=== PATIENT | female | born 1975 | race Caucasian/White ===

== ENCOUNTER 2016-06-21 19:11 | Emergency (ER) | payer OTHER ==
[~2016-06-21] VITALS: Ht 172.7 cm; Wt 93.0 kg
[~2016-06-21 19:11] MED LIST: ANTIVERT 25 MG25 MG PO; AUGMENTIN 875 M1 TAB PO; FENOFIBRIC ACI135 M1 PO; HYDROCODONE/ACE1 TA1 PO; LEVOTHYROXINE125 MCG PO; MULTIVITAMIN1 TAB PO; NORCO 325 MG-51 TAB PO; NORCO 5-325 TA1 EACH PO; PROMETHAZINE HC25 M3 PO; TORADOL10 MG PO; XANAX0.25 M1 PO; ZOFRAN ODT4 MG SL; ZOFRAN4 MG PO
[2016-06-21 19:26] VITALS: BP 135/90
--- NOTE | 2016-06-21 20:33 | ED GI/GU/ABDOMINAL COMPLAINT ---
History of Present Illness General Chief Complaint: Abdominal Pain/Flank Pain Stated Complaint: ABD PAIN Source: patient Exam Limitations: no limitations Vital Signs & Intake/Output Vital Signs & Intake/Output Vital Signs Date Time Temp Pulse Resp B/P Pulse O2 O2 Flow FiO2 Ox Delivery Rate 06/21 1925 98.4 79 18 135/90 97 Room Air ED Intake and Output 06/22 0000 06/21 1200 Intake Total Output Total Balance Patient 205 lb Weight Allergies Coded Allergies: Sulfa (Sulfonamide Antibiotics) (THROAT SWELLS/ITCHY 10/06/15) Reconcile Medications Alprazolam (Xanax) 0.25 MG TABLET 1 TAB PO TID PRN ANXIETY FENOFIBRIC ACID (CHOLINE) (Fenofibric Acid) 135 MG CAPSULE.DR 1 CAP PO DAILY CHOLESTEROL (Reported) Hydrocodone/Acetaminophen (Vicodin 5-300 MG Tablet) 5 MG-300 MG TABLET 1 TAB PO Q6 PRN pain may cause drowsiness Hydrocodone/Acetaminophen ([place] 5-325 Tablet) 1 EACH TABLET 1 TAB PO TIDPRN PRN HEADACHE Levothyroxine Sodium 0.125 MG TAB 1 TAB PO DAILY AC THYROID (Reported) Promethazine HCl 25 MG TABLET 1 TAB PO Q6P PRN NAUSEA Triage Note: PT TO ED C/O PRESSURE, BURNING PAIN "DOWN THERE" OFF AND ON FOR MONTHS, CONSTANT FOR THE LAST 3 DAYS "THERE'S AN ODOR" DENIES VAGINAL DISCHARGE. STEATES FEELS RELIEF WITH URINATION. +URINARY FREQUENCY Triage Nurses Notes Reviewed? yes ? N Is pt currently ? No HPI: Patient is a 40-year-old female presents complaining of urethral pain, dysuria, frequency. Patient reports that she has had symptoms for a couple of months, seen her urologist one month ago, had a bladder ultrasound and was told that her symptoms were not a urologic problem. Patient reports that she has had malodor vaginally, no discharge. Today patient felt weakness and diaphoresis and chills and fevers. Patient reports that her urethral pain improves with hot water and applying pressure to the area. Patient's last period was approximately 6 years ago. Patient denies vomiting, hematuria, vaginal discharge. (CONCHITA FORTUNE,MANAV) Past History Travel History Traveled to [place] past 21 day No Medical History Any Pertinent Medical History? 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 No (MANAV ORELLANA) Review of Systems Review of Systems Constitutional: Reports: chills, fever. EENTM: Reports: no symptoms. Respiratory: Denies: cough, short of breath. Cardiovascular: Denies: chest pain. GI: Reports: see HPI. Genitourinary: Reports: see HPI. Musculoskeletal: Reports: no symptoms. Skin: Reports: no symptoms. Neurological/Psychological: Reports: no symptoms. Hematologic/Endocrine: Reports: no symptoms. Immunologic/Allergic: Reports: no symptoms. (MANAV ORELLANA) Physical Exam Physical Exam General Appearance: alert, awake Head: atraumatic, normal appearance Eyes: Bilateral: normal appearance, PERRL, EOMI. Ears, Nose, Throat, Mouth: hearing grossly normal, moist mucous membrane Neck: normal inspection, supple, full range of motion Respiratory: normal breath sounds, no respiratory distress, lungs clear Cardiovascular: regular rate/rhythm Gastrointestinal: normal bowel sounds, soft, MILD BILATERAL PELVIC TENDERNESS Pelvic: with Sheila RN present throughout: no visible external lesions. Mild clitoral tenderness. Minimal white discharge from cervical os. No visible or palpable lesions. No cervical motion tenderness Back: normal inspection, normal range of motion, no cva tenderness Extremities: normal range of motion Neurologic/Psych: no motor/sensory deficits, awake, alert, oriented x 3, normal gait, normal mood/affect Skin: intact, normal color, warm/dry Core Measures ACS in differential dx? No Severe Sepsis Present: No Septic Shock Present: No (MANAV ORELLANA) Progress Differential Diagnosis: kidney stone, ovarian cyst, ovarian torsion, PID/ cervicitis, UTI/pyelo, INTERSTITIAL CYSTITIS Plan of Care: Orders Procedure Date/time Status TRICHOMONAS 06/22 2047 Complete POTASSIUM HYDROXIDE (MADIE) 06/22 2047 Complete GENITAL CULTURE 06/22 2047 Active CHLAMYDIA-GC DNA PROBE 06/22 2047 Active URINE 06/22 1931 Complete URINALYSIS 06/22 1931 Complete Laboratory Tests 06/21/161938: Urine Color YEL, Urine Clarity CLEAR, Urine pH 6.0, Ur Specific [place] 1.010, Urine Protein NEG, Urine Ketones NEG, Urine Nitrite NEG, Urine Bilirubin NEG, Urine Urobilinogen 0.2, Ur Leukocyte Esterase NEG, Ur Microscopic SEDIMENT EXAMINED, Urine RBC RARE, Urine WBC RARE, Ur Epithelial Cells FEW, Urine Bacteria RARE H, Urine Hemoglobin TRACE-INTACT, Urine Glucose NEG, Urine Test NEGATIVE Microbiology 06/21 2114 GENITAL: GC DNA Probe - RECD 06/21 2114 GENITAL: Chlamydia DNA Probe (NORBERTO) - RECD 06/21 2114 GENITAL: MADIE Preparation - COMP 06/21 2114 GENITAL: Trichomonas Preparation - COMP 06/21 2114 GENITAL: Genital Culture - RES Results of urinalysis, Trichomonas, fungal culture discussed with patient. No signs of PID on exam. Patient instructed to follow up with her ux ui designer for further evaluation. (MANAV ORELLANA) Initial ED EKG: none (MANAV ORELLANA) Departure Departure Time of Disposition: 2147 Disposition: HOME OR SELF CARE Condition: Stable Clinical Impression Primary Impression: Pelvic pain Referrals: KENNY SAL,DAPHNE (PCP/Family) UBALDO SAL,DAISY Gutiérrez Additional Instructions: Follow-up with your ux ui designer within one week for further evaluation. Call tomorrow for appointment. Return to the emergency department if fevers or worsening of symptoms. Departure Forms: Customer Survey General Discharge Information Prescriptions: Current Visit Scripts Hydrocodone/Acetaminophen (Vicodin 5-300 MG Tablet) 1 TAB PO Q6 PRN pain #10 TAB may cause drowsiness (MANAV ORELLANA) PA/CATHODE RAY TUBE ASSEMBLER Co-Sign Statement Statement: ED Attending supervision documentation- [] I saw and evaluated the patient. I have also reviewed all the pertinent lab results and diagnostic results. I agree with the findings and the plan of care as documented in the PA's/CATHODE RAY TUBE ASSEMBLER's documentation. [X] I have reviewed the ED Record and agree with the PA's/CATHODE RAY TUBE ASSEMBLER's documentation. [] Additions or exceptions (if any) to the PAs/CATHODE RAY TUBE ASSEMBLER's note and plan are summarized below: [] (JARRELL SAL,CESAR)
[2016-06-21] MEDS ORDERED: VICODIN 5-3001 EACH PO (21:49)
[2016-09-05] MEDS ORDERED: IBUPROFEN800 M1 PO (05:17)
[2016-09-05] MEDS ORDERED: NORCO 5-325 TA1 EACH PO (05:17)
[2016-09-05] MEDS ORDERED: ZOFRAN ODT4 M1 SL (05:17)
== END 2016-06-21 21:54 ==
LOC: ERH 19:11
DX: R10.2 Pelvic and perineal pain (principal)
CPT/HCPCS: 87070; 81001; 81025; 87147; 87491; 87591

== ENCOUNTER 2016-09-06 11:04 | Inpatient (IN) | payer OTHER ==
[~2016-09-06] VITALS: Ht 170.2 cm; Wt 93.9 kg
[~2016-09-06 11:04] MED LIST changes: +IBUPROFEN800 M1 PO; +VICODIN 5-3001 EACH PO; +ZOFRAN ODT4 M1 SL
--- NOTE | 2016-09-06 11:14 | NUR ---
PT SIB DR FOUNTAIN FOR FEVER AND KNOWN L SIDED KIDNEY STONE.
--- NOTE | 2016-09-06 11:17 | NUR ---
APPRECIATE TRIAGE NOTE. PT TO ROOM 18 VIA WHEELCHAIR. ASSISTED TO STRETCHER, AWAITING PROVIDER EVAL.
--- NOTE | 2016-09-06 11:23 | ED GENERAL ADULT ---
History of Present Illness General Chief Complaint: Abdominal Pain/Flank Pain Stated Complaint: ABD PAIN, VOMITTING, DX W/KIDNEY STONE YES Source: patient Exam Limitations: no limitations Vital Signs & Intake/Output Vital Signs & Intake/Output Vital Signs Date Time Temp Pulse Resp B/P B/P Pulse O2 O2 Flow FiO2 Mean Ox Delivery Rate 09/06 1815 99.0 86 18 120/78 95 Room Air Room Air 09/06 1229 101.2 101 18 119/61 98 Room Air Room Air 09/06 1114 101.9 104 20 121/74 100 Room Air Allergies Coded Allergies: Sulfa (Sulfonamide Antibiotics) (THROAT SWELLS/ITCHY 09/05/16) Reconcile Medications Hydrocodone/Acetaminophen ([place] 5-325 Tablet) 5 MG-325 MG TABLET 1-2 TAB PO Q4-6 PRN PRN pain six...[id number] Ibuprofen 800 MG TABLET 1 TAB PO TID PRN pain Ondansetron (Zofran Odt) 4 MG TAB.RAPDIS 1 TAB SL TID PRN nausea Triage Note: PT SIB DR ALVAREZ FOR FEVER AND KNOWN L SIDED KIDNEY STONE. Triage Nurses Notes Reviewed? yes : No Patient currently breastfeeds: No HPI: 41-year-old female with a history of hypertension, renal stones, hypothyroid presenting with subjective fevers 2 days. Patient was seen in the ED yesterday morning and diagnosed with a left-sided ureteral stone. Patient was sent back in by Dr. Alvarez for continued fevers. Patient endorses nausea, vomiting, intermittent left flank pain, dysuria, but denies hematuria. (THALIA PHILIPPE,DEBBI) Past History Travel History Traveled to [place] past 21 day No Medical History Any Pertinent Medical History? 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 No (DEBBI VÁSQUEZ PA-C) Review of Systems Review of Systems Constitutional: Reports: chills, fever. Denies: malaise, weakness. Respiratory: Reports: no symptoms. Cardiovascular: Reports: no symptoms. GI: Reports: nausea, vomiting. Denies: abdominal pain, constipation, diarrhea. Genitourinary: Reports: dysuria. Denies: frequency, hematuria, urgency. Musculoskeletal: Reports: no symptoms. Skin: Reports: no symptoms. Neurological/Psychological: Reports: no symptoms. (DEBBI VÁSQUEZ PA-C) Physical Exam Physical Exam General Appearance: well developed/nourished, no apparent distress, alert, awake , comfortable Head: atraumatic Respiratory: normal breath sounds, lungs clear Cardiovascular: regular rate/rhythm, normal peripheral pulses Gastrointestinal: normal bowel sounds, soft, non-tender Back: +Left CVAT Neurologic/Psych: awake, alert, oriented x 3, normal mood/affect Skin: intact, normal color, warm/dry Core Measures ACS in differential dx? No CVA/TIA Diagnosis: No Severe Sepsis Present: No Septic Shock Present: No (THALIA PHILIPPE,DEBBI) Progress Differential Diagnoses I considered the following diagnoses in my evaluation of the patient: [ Urolithiasis versus nephrolithiasis versus cystitis versus pyelonephritis versus hydronephrosis] Plan of Care: Orders Procedure Date/time Status Regular Diet 09/07 B Active CBC WITHOUT DIFFERENTIAL 09/07 0600 Active BASIC ELECTROLYTES PLUS BUN&CR 09/07 0600 Active Regular Diet 09/06 D Complete CULTURE,URINE 09/06 2053 Active LACTIC ACID 09/06 1928 Active Pathway - chart 09/06 1919 Active Pathway - chart 09/06 1918 Active House Staff 09/06 1918 Active Code Status 09/06 1918 Active CBC WITHOUT DIFFERENTIAL 09/06 1856 Complete Teach/Educate 09/06 1815 Active Pain Treatment and Response 09/06 1815 Active Nutritional Intake, Monitor 09/06 1815 Active Isolation 09/06 1815 Active Patient Care Conference 09/06 1815 Active Activity/Ambulation 09/06 1815 Active LACTIC ACID 09/06 1628 Complete Pathway - chart 09/06 1627 Active House Staff 09/06 1627 Active Patient Data 09/06 1627 Active BASIC ELECTROLYTES PLUS BUN&CR 09/06 1627 Complete Code Status 09/06 1627 Complete PATHOLOGY SPECIMEN 09/06 1426 Complete Intake & Output 09/06 1205 Active FingerStick- Glucose 09/06 1158 Complete BASIC METABOLIC PANEL 09/06 1129 Complete BLOOD CULTURE 09/06 1110 Active URINALYSIS 09/06 111 Complete CBC WITHOUT DIFFERENTIAL 09/06 1110 Complete VTE Mechanical Prophylaxis 09/06 UNK Active Vital Signs 09/06 UNK Active Intake & Output 09/06 UNK Complete Current Medications Sig/Lex Start time Last Medication Dose Stop Time Status Admin Ceftriaxone Sodium 1,000 MG DAILY 09/07 1000 AC (Rocephin) Acetaminophen 650 MG Q6P PRN 09/06 1929 AC 09/06 (Tylenol) 2005 Acetaminophen/ 1 TAB Q6P PRN 09/06 1929 AC 09/06 Hydrocodone Bitart 2206 (Vicodin) Morphine Sulfate 2 MG Q4P PRN 09/06 1929 AC (Morphine) Enoxaparin Sodium 40 MG DAILY 09/06 1917 AC 09/06 (Lovenox) 2058 Sodium Chloride 1,000 ML .Q6H40M 09/06 163 AC 09/06 (Normal Saline 0.9%) 190 Acetaminophen 650 MG ONCE ONE 09/06 113 CAN (Tylenol) 09/06 113 Laboratory Tests 09/06/162207: Lactic Acid Pending 09/06/16 190: CBC w Diff NO MAN DIFF REQ, RBC 4.27, MCV 93.5, MCH 31.2 H, RDW 12.3, MPV 8.6, Gran % 87.5 H, Lymphocytes % 7.2 L, Monocytes % 5.2, Eosinophils % 0, Basophils % 0.1, Absolute Granulocytes 5.9, Absolute Lymphocytes 0.5 L, Absolute Monocytes 0.4, Absolute Eosinophils 0, Absolute Basophils 0, PUBS MCHC 33.3 09/06/16 1832: Lactic Acid 1.2 09/06/16 1832: Anion Gap 9, Estimated GFR > 60, BUN/Creatinine Ratio 20.0 09/06/16 1135: CBC w Diff NO MAN DIFF REQ, RBC 4.42, MCV 93.0, MCH 31.1 H, RDW 12.2, MPV 8.4, Gran % 80.9 H, Lymphocytes % 8.2 L, Monocytes % 10.5 H, Eosinophils % 0.2, Basophils % 0.2, Absolute Granulocytes 5.9, Absolute Lymphocytes 0.6 L, Absolute Monocytes 0.8 H, Absolute Eosinophils 0, Absolute Basophils 0, PUBS MCHC 33.4, Urinalysis LIGHT H, Urine Color YEL, Urine Clarity HAZY H, Urine pH 6.5, Ur Specific [place] 1.025, Urine Protein 100 H, Urine Ketones TRACE H, Urine Nitrite NEG, Urine Bilirubin NEG@ICTO, Urine Urobilinogen 1.0, Ur Leukocyte Esterase SMALL H, Ur Microscopic SEDIMENT EXAMINED, Urine RBC 15-25 H, Urine WBC 15-25 H, Ur Epithelial Cells MOD H, Urine Bacteria MOD H, Urine Mucus FEW, Urine Hemoglobin LARGE H, Urine Glucose NEG 09/06/16 1133: Anion Gap 7, Estimated GFR > 60, BUN/Creatinine Ratio 24.3, Glucose 109 H, Calcium 8.9 09/06/16 1110: Sodium Cancelled, Potassium Cancelled, Chloride Cancelled, Carbon Dioxide Cancelled, Anion Gap Cancelled, BUN Cancelled, Creatinine Cancelled, BUN/ Creatinine Ratio Cancelled, Glucose Cancelled, Calcium Cancelled Microbiology 09/06 2052 URINE ROUT: Urine Culture - ORD 09/06 1136 BLOOD: Blood Culture - RECD 09/06 113 BLOOD: Blood Culture - RECD White cell count and kidney function within normal limits and labs. Patient taken to OR for stenting of known ureteral stone. (DEBBI VÁSQUEZ PA-C) Initial ED EKG: none (DEBBI VÁSQUEZ PA-C) Departure Departure Disposition: STILL A PATIENT Condition: Stable Clinical Impression Primary Impression: Ureteral stone Secondary Impressions: Fever Referrals: DAPHNE COX MD (PCP/Family) Departure Forms: Customer Survey General Discharge Information (DEBBI VÁSQUEZ PA-C) PA/CRIMINAL JUSTICE LAWYER Co-Sign Statement Statement: ED Attending supervision documentation- [] I saw and evaluated the patient. I have also reviewed all the pertinent lab results and diagnostic results. I agree with the findings and the plan of care as documented in the PA's/CRIMINAL JUSTICE LAWYER's documentation. [X] I have reviewed the ED Record and agree with the PA's/CRIMINAL JUSTICE LAWYER's documentation. [] Additions or exceptions (if any) to the PAs/CRIMINAL JUSTICE LAWYER's note and plan are summarized below: [] (JARRELL SAL,CESAR) Critical Care Note Critical Care Note Critical Care Time: non-applicable (DEBBI VÁSQUEZ PA-C) ED Attending Observation Initial Observation Note: I have seen and personally examined ALIYAH BERUMEN on 09/06/16 at 2216. I agree with the current emergency department documentation. The disposition (admission or discharge) is uncertain at this time, she needs a period of observation for the following reason(s): [surgical stenting of left ureter, post op monitoring, possible IV abx pending U/A results] The ED Nurse caring for this patient has been personally informed as to what the patient is being observed for. Observation Re-Evaluation: I have reevaluated ALIYAH BERUMEN on 09/06/16 at 2216. The physical findings that support the continued need to observe this patient include [fever, flank pain, dysuria]. Observation Discharge: I have reevaluated ALIYAH BERUMEN on 09/06/16 at 2216. The patient is: (): Stable for discharge (): To be admitted to Nursing Floor (): To be placed in Observation on Nursing Floor (): For transfer to other facility The patient was being observed for As a result of that observation, I have determined . (THALIA PHILIPPE,DEBBI)
--- NOTE | 2016-09-06 11:23 | NUR ---
DR. FOUNTAIN TO BEDSIDE FOR EVALUATION.
--- NOTE | 2016-09-06 12:08 | NUR ---
LINE EST #20 TO RIGHT FOREARM. MEDICATED WITH NS BOLUS, ZOFRAN 4MG IV AND TYLENOL IV PER EMAR. PT PROVIDED PRE-OP SCRUB, OR SHEET COMPPLETED.
[2016-09-06 12:13] LABS: ABSOLUTE BASOPHIL COUNT 0 /CUMM (0.0-0.2); ABSOLUTE EOSINOPHIL COUNT 0 /CUMM (0.0-0.7); ABSOLUTE GRANULOCYTE CT 5.9 /CUMM (1.4-6.5); ABSOLUTE LYMPH COUNT 0.6 /CUMM (1.2-3.4); ABSOLUTE MONOCYTE COUNT 0.8 /CUMM (0.10-0.60); BASOPHIL % 0.2 % (0.0-2.0); EOSINOPHIL % 0.2 % (0-5); GRANULOCYTE % 80.9 % (42.2-75.2); HEMATOCRIT 41.1 % (37-47); MEAN CORPUSCULAR HGB 31.1 PG (27.0-31.0); MEAN CORPUSCULAR HGB CONC 33.4 G/DL (33.0-37.0); MEAN PLATELET VOLUME 8.4 FL (7.4-10.4); PLATELET COUNT 125 /CUMM (130-400); RBC DISTRIBUTION WIDTH 12.2 % (11.5-14.5); RED BLOOD CELL CT 4.42 /CUMM (4.20-5.40); WHITE BLOOD CELL COUNT 7.3 /CUMM (4.8-10.8)
--- NOTE | 2016-09-06 12:45 | NUR ---
PT TRANSPORTED TO OR AT THIS TIME. PT FAMILY TAKING PT 1 BELONGING BAG WITH CLOTHES AND JEWELRY.
--- NOTE | 2016-09-06 14:34 | Cons- Urology ---
General Information and HPI Consulting Request Date of Consult: 09/06/16 Requested By: MD JARRELL, [facility]- Reason for Consult: left obstructed kidney with sepsis Source of Information: patient, old records Exam Limitations: no limitations History of Present Illness: 41 yr old with known hx stones. seen in ER several days ago with CT done revealing stone. Now returns with rigors, fever, severe N/V. Allergies/Medications Allergies: Coded Allergies: Sulfa (Sulfonamide Antibiotics) (THROAT SWELLS/ITCHY 09/05/16) Home Med List: Fenofibric Acid (Choline) (Fenofibric Acid) 135 MG CAPSULE.DR 1 CAP PO DAILY CHOLESTEROL (Reported) Hydrocodone/Acetaminophen ([place] 5-325 Tablet) 5 MG-325 MG TABLET 1-2 TAB PO Q4-6 PRN PRN pain six...[id number] Ibuprofen 800 MG TABLET 1 TAB PO TID PRN pain Levothyroxine Sodium 125 MCG TABLET 1 TAB PO DAILY AC THYROID (Reported) Ondansetron (Zofran Odt) 4 MG TAB.RAPDIS 1 TAB SL TID PRN nausea Current Medications: Current Medications Sig/Lex Start time Last Medication Dose Route Stop Time Status Admin Acetaminophen 1,000 MG ONCE ONE 09/06 1215 DC 09/06 N/A 1 UNIT IV 09/06 1229 1205 Acetaminophen 0 .STK-MED ONE 09/06 1148 DC IV Acetaminophen 650 MG ONCE ONE 09/06 1130 CAN PO 09/06 1131 Ondansetron HCl 0 .STK-MED ONE 09/06 1148 DC .ROUTE Ondansetron HCl 4 MG ONCE ONE 09/06 1145 DC 09/06 IV 09/06 1146 1203 Sodium Chloride 1,000 ML BOLUS ONE 09/06 1130 DC 09/06 IV 09/06 1229 1203 Past History Medical History Blood Transfusion Hx: No Neurological: NONE EENT: NONE Cardiovascular: hypertension Respiratory: asthma Gastrointestinal: NONE Hepatic: NONE Renal: nephrolithiasis Musculoskeletal: NONE Psychiatric: NONE Endocrine: hypothyroidism Blood Disorders: NONE Cancer(s): NONE 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 Ambulation: independent IADLs Independent: shopping, housework, finances, food prep, telephone, transportation , medication admin. Employment History Retired? no Review of Systems Review of Systems Constitutional: Reports: chills, diaphoresis, fever, malaise, weakness. EENTM: Denies: no symptoms. Cardiovascular: Denies: no symptoms. Respiratory: Denies: no symptoms. GI: Reports: bloating. Genitourinary: Reports: dysuria, frequency. Musculoskeletal: Reports: no symptoms. Skin: Reports: see HPI. Exam & Diagnostic Data Vital Signs and I&O Vital Signs Date Time Temp Pulse Resp B/P B/P Pulse O2 O2 Flow FiO2 Mean Ox Delivery Rate 09/06 1229 101.2 101 18 119/61 98 Room Air Room Air 09/06 1114 101.9 104 20 121/74 100 Room Air Intake & Output 09/06 1600 09/06 0800 09/06 0000 09/05 1600 09/05 0800 09/05 0000 Intake Total 1000 Output Total Balance 1000 Intake, IV 1000 Patient 207 lb Weight Weight Reported by Patient Measurement Method Physical Exam General Appearance: well developed/nourished, mild distress Head: atraumatic Eyes: Bilateral: normal appearance. Neck: normal inspection Respiratory: normal breath sounds Cardiovascular: regular rate/rhythm Gastrointestinal: normal bowel sounds Back: CVA tenderness (L) Extremities: normal inspection Reproductive: Normal female genitalia Pelvic: Appearance Normal Last 24 Hours of Labs: Laboratory Tests 09/06 09/06 09/06 1135 1133 1110 Chemistry Sodium (137 - 145 mmol/L) 137 Cancelled Potassium (3.5 - 5.1 mmol/L) 3.7 Cancelled Chloride (98 - 107 mmol/L) 102 Cancelled Carbon Dioxide (22 - 30 mmol/L) 27 Cancelled Anion Gap (5 - 16) 7 Cancelled BUN (7 - 17 mg/dL) 17 Cancelled Creatinine (0.5 - 1.0 mg/dL) 0.7 Cancelled Estimated GFR (>60 ml/min) > 60 BUN/Creatinine Ratio (7 - 25 %) 24.3 Cancelled Glucose (65 - 99 mg/dL) 109 H Cancelled Calcium (8.4 - 10.2 mg/dL) 8.9 Cancelled Hematology CBC w Diff NO MAN DIFF REQ WBC (4.8 - 10.8 /CUMM) 7.3 RBC (4.20 - 5.40 /CUMM) 4.42 Hgb (12.0 - 16.0 G/DL) 13.7 Hct (37 - 47 %) 41.1 MCV (81.0 - 99.0 FL) 93.0 MCH (27.0 - 31.0 PG) 31.1 H RDW (11.5 - 14.5 %) 12.2 Plt Count (130 - 400 /CUMM) 125 L MPV (7.4 - 10.4 FL) 8.4 Gran % (42.2 - 75.2 %) 80.9 H Lymphocytes % (20.5 - 51.1 %) 8.2 L Monocytes % (1.7 - 9.3 %) 10.5 H Eosinophils % (0 - 5 %) 0.2 Basophils % (0.0 - 2.0 %) 0.2 Absolute Granulocytes (1.4 - 6.5 /CUMM) 5.9 Absolute Lymphocytes (1.2 - 3.4 /CUMM) 0.6 L Absolute Monocytes (0.10 - 0.60 /CUMM) 0.8 H Absolute Eosinophils (0.0 - 0.7 /CUMM) 0 Absolute Basophils (0.0 - 0.2 /CUMM) 0 PUBS MCHC (33.0 - 37.0 G/DL) 33.4 Urines Urinalysis LIGHT H Urine Color (YEL,AMB,STR) YEL Urine Clarity (CLEAR) HAZY H Urine pH (5.0 - 8.0) 6.5 Ur Specific [place] (1.001 - 1.035) 1.025 Urine Protein (NEG,<30 MG/DL) 100 H Urine Ketones (NEG) TRACE H Urine Nitrite (NEG) NEG Urine Bilirubin (NEG) NEG@ICTO Urine Urobilinogen (0.1 - 1.0 EU/dl) 1.0 Ur Leukocyte Esterase (NEG) SMALL H Ur Microscopic SEDIMENT EXAMINED Urine RBC (0 - 5 /HPF) 15-25 H Urine WBC (0 - 2 /HPF) 15-25 H Ur Epithelial Cells (NONE,FEW) MOD H Urine Bacteria (NEG/NONE) MOD H Urine Mucus (FEW,NONE) FEW Urine Hemoglobin (NEG) LARGE H Urine Glucose (N MG/DL) NEG Imaging Results: PATIENT: ALIYAH BERUMEN PRESENT AGE: 40 PATIENT ACCOUNT NO: [id number] : 74 LOCATION: [facility] ORDERING PHYSICIAN: MIROSLAVA MEJIA MD SERVICE DATE: 09/05/16 EXAM TYPE: CAT - CT ABD & PELVIS W/O IV CONTRAS EXAMINATION: CT ABDOMEN AND PELVIS WITHOUT CONTRAST CLINICAL INFORMATION: Left flank pain COMPARISON: 09/25/2014 TECHNIQUE: Multidetector volumetric imaging was performed from the superior aspect of the liver through the pubic symphysis. Sagittal and coronal reformatted images were obtained on the technologist's workstation. DLP: 1020.37 mGy-cm FINDINGS: LUNG BASES: The visualized lung bases are unremarkable. LIVER, GALLBLADDER, AND BILIARY TREE: The liver is normal in size, shape, and attenuation. No focal hepatic lesion or biliary ductal dilatation is present. The gallbladder is unremarkable with no evidence of radiopaque gallstones, gallbladder wall thickening, or obvious pericholecystic inflammatory changes. PANCREAS: Unremarkable. SPLEEN: Unremarkable. ADRENAL GLANDS: Unremarkable. KIDNEYS AND URETERS: There is a distal left ureteral calculus measuring 4 mm with moderate to severe hydroureteronephrosis. There is an additional calculus in the lower pole of the left kidney measuring 3 mm. The right kidney is normal in appearance, without hydronephrosis. BLADDER: Unremarkable. GASTROINTESTINAL TRACT: Colonic diverticulosis is noted. The small and large bowel are otherwise unremarkable without evidence of obstruction or pericolonic inflammatory change. The appendix is unremarkable. ABDOMINAL WALL: No significant hernia is appreciated. LYMPH NODES: Normal. VASCULAR: There is minimal scattered vascular calcification. PELVIC VISCERA: Unremarkable. OSSEOUS STRUCTURES: There is partial sacralization of L5. IMPRESSION: 1. Distal left ureteral calculus measuring 4 mm with moderate to severe hydroureteronephrosis. 2. Left lower pole renal calculus measuring 3 mm. Assessment/Plan Assessment/Plan left obstructed kidney due to stone with sepsis/requires emergent stent Copies To: NEERU FOUNTAIN MD Consult Acknowledgment - Thank you for your consult request. Attending MD Review Statement Attending Statement Attending MD Statement: examined this patient, discuss w/resident/PA/JAVASCRIPT WEB DEVELOPER Attending Assessment/Plan: left ureter stone with obstruction; and sepsis.
--- NOTE | 2016-09-06 15:09 | RADIOLOGY REPORT ---
EXAMINATION: Fluoroscopy in the cystoscopy suite CLINICAL INDICATION: Distal left ureteral calculus and severe hydroureteronephrosis. Patient for retrograde stent placement. COMPARISON: CT of the abdomen and pelvis on 09/06/2019 03/21/2016. TECHNIQUE: Fluoroscopy was provided to Dr. Everardo Alvarez during the performance of left ureteroscopy and left ureteral stent placement. 7 spot films are submitted for review. The total fluoroscopy was 27 seconds. FINDINGS/IMPRESSION: The spot films document the steps taken in placement of a left ureteral stent, the proximal end of which is in the distal portion of the left renal pelvis and the distal end in the bladder. Please refer to operative notes for further details.
--- NOTE | 2016-09-06 16:12 | Operative Report ---
Operative/Inv Procedure Report Surgery Date: 09/06/16 Name of Procedure: cystoscopy: left ureteroscopy with basket extraction of stone, laser standby, retrograde pyelogram. fluoroscopy Pre-Operative Diagnosis: left obstructing ureter stone with sepsis Post-Operative Diagnosis: same Estimated Blood Loss: roya Surgeon/Nurse Clinical: NEERU FOUNTAIN MD Anesthesia: laryngeal mask airway Specimens: left ureter stone. Complications: none Operative/Procedure Note Note: The patient was taken to the operating room, and placed on the OR table in supine position. Timeout was performed, with the patient awake, in order to confirm correct identity, procedure, laterality, anesthesia, and other pertinent perioperative information. After adequate anesthesia and antibiotics, the patient was then placed lithotomy stirrups, draped and prepped in the usual surgical fashion. A 22 Liberian cystoscope sheath with 30 angle lens was inserted into the bladder without difficulty. Upon entering the bladder, the bladder was noted to be free of tumor free of stone. Both orifices were in their orthotopic position. The left ureter orifice was intubated with an 8fr cone-tip catheter and a retrograde pyelogram with fluoroscopy was performed revealing the 4 mm mid-left ureter stone, mid-ureter stricture, and proximal mild hydronephrosis. The cone-tipped catheter was removed, followed by insertion of a 0.035 Glidewire. The gluidewire was advanced into the left renal pelvis without difficulty. Correct placement of the wire was confirmed with fluoroscopy. Leaving the Glidewire in place, a flexible ureteroscope was advanced/rail-roaded over the gluidewire (with fluoroscopic visualization) and advanced into the bladder, and then into the left ureter, without significant difficulty. The ureteroscope was ealily advanced/inserted under direct visualization. Pyeloscopy and calyxoscopy was performed revealing no visible stones, but with findings noted in this report of upper calyx stone-obstructed lumen. The ureteroscope was retracted to visualize the stone. A zero-tip basket was then used to extract the ureter stone easily, and was then sent to pathology. The entire length of the ureter was visualize carefully on the way out with the ureteroscope, and no further stones, tumor, or strictures were confirmed. At this point the stand by yag laser was powered down. The 22 Liberian cystoscope sheath with a 30 angle lens was inserted once again, into the bladder. The left orifice was visualized, and a 0.035 Glidewire was then advanced into the left ureter. The Glidewire was advanced into the left renal pelvis, with fluoroscopic visualization, without difficulty. Over this Glidewire, a 6 x 22 Bard onlay stent was railroaded, with direct cystoscopic visualization, and fluoroscopic visualization. When the stent was in proper place, the Glidewire was removed, and the stent remained in good position. The bladder was then drained after the cystoscope was removed. The patient tolerated the procedures well, and was then taken to the recovery room in satisfactory condition. After discharge with abx. and pain meds, the patient is insturcted to have follow renal US, and post-op visit in 2-4 weeks. Discharge Disposition: PACU Additional Comments: to be admitted to med. for IV hydration and IV abx pending culture results from sepsis workup CC: АЛЕКСАНДР SAL,NEERU
--- NOTE | 2016-09-06 16:51 | History & Physical ---
MARIA G GOYAL 09/06/16 8170: General Information and HPI MD Statement: I have seen and personally examined ALIYAH BERUMEN and documented this H& P. The patient is a 41 year old F who presented with a patient stated chief complaint of fever, nausea, vomiting, left flank pain. Source of Information: patient, old records Exam Limitations: no limitations History of Present Illness: This is a 41-year-old female with past medical history significant for multiple admissions for kidney stones and stent placements, hyperlipidemia, hypothyroidism, hypertension presented to [facility] emergency department this morning with chief complaint of fever, nausea, vomiting, left flank pain, dysuria for 1 day. Of note patient was seen at the emergency room on 09/05/[address] abdomen showed a left ureteral stone 4 mm and moderate to severe hydroureteronephrosis, left lower pole kidney stone 3 mm. She was discharged from the emergency room on pain medications, nausea medications and she was advised to follow-up with urologist. She went home and she felt worsening of symptoms-nausea, vomiting, left flank pain. she has No relief with the pain medications. She came to the emergency department again this morning 09/06/2016 and she was evaluated by Dr. lAvarez urologist in the emergency room. She was taken to the operating room this afternoon for cystoscopy and stone removal and left ureteral stent placement. However after the procedure she started spiking temperatures again associated with the nausea, vomiting. Also reported left flank pain radiating to groin. No blood in urine. Denies any smoking, alcohol abuse, illicit drug abuse. Past medical history significant for hypertension-discontinued medications because of normal blood pressures Past medical history significant for hypothyroidism-discontinued levothyroxine because of normal thyroid function tests Patient has past medical history significant for kidney stones for 5 years. She underwent 5 procedures-stone removal, stent placements. She was admitted at [facility] 3 years ago for right ureteral stent placement. Allergies/Medications Allergies: Coded Allergies: Sulfa (Sulfonamide Antibiotics) (THROAT SWELLS/ITCHY 09/05/16) Home Med list Hydrocodone/Acetaminophen ([place]ah 5-325 Tablet) 5 MG-325 MG TABLET 1-2 TAB PO Q4-6 PRN PRN pain six...[id number] Ibuprofen 800 MG TABLET 1 TAB PO TID PRN pain Ondansetron (Zofran Odt) 4 MG TAB.RAPDIS 1 TAB SL TID PRN nausea Compliance With Home Meds: GOOD Past History Travel History Traveled to [place] past 21 day No Medical History Blood Transfusion Hx: No Neurological: NONE EENT: NONE Cardiovascular: hypertension Respiratory: asthma Gastrointestinal: NONE Hepatic: NONE Renal: nephrolithiasis Musculoskeletal: NONE Psychiatric: NONE Endocrine: hypothyroidism Blood Disorders: NONE Cancer(s): NONE 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 Ambulation: independent IADLs Independent: shopping, housework, finances, food prep, telephone, transportation , medication admin. Review of Systems Review of Systems Constitutional: Reports: chills, diaphoresis, fever, weakness. EENTM: Reports: no symptoms. Cardiovascular: Denies: chest pain, edema, orthopena, palpitations, peripheral edema, syncope. Respiratory: Denies: cough, hemoptysis, orthopnea, short of breath, sputum production, stridor, wheezing. GI: Reports: abdominal pain, nausea, vomiting. Denies: bloating, constipation, diarrhea, distention, bowel incontinence, melena. Genitourinary: Reports: dysuria. Denies: discharge, frequency, hematuria, hesitation, pain, urgency. Musculoskeletal: Denies: joint pain, joint swelling, muscle pain. Neurological/Psychological: Denies: headache, numbness, paresthesia, pre-existing deficit, tingling, tremors. Exam & Diagnostic Data Last 24 Hrs of Vital Signs/I&O Vital Signs Date Time Temp Pulse Resp B/P B/P Pulse O2 O2 Flow FiO2 Mean Ox Delivery Rate 09/06 1815 99.0 86 18 120/78 95 Room Air Room Air 09/06 1229 101.2 101 18 119/61 98 Room Air Room Air 09/06 1114 101.9 104 20 121/74 100 Room Air Intake & Output 09/06 1600 09/06 0800 09/06 0000 Intake Total 1000 Output Total Balance 1000 Intake, IV 1000 Patient 93.894 kg Weight Weight Reported by Patient Measurement Method Physical Exam General Appearance Alert, Oriented X3, Cooperative, No Acute Distress Skin No Rashes, No Breakdown HEENT Atraumatic, PERRLA, EOMI, Mucous Membr. moist/pink Neck Supple, No JVD Lymphatic Cervical nl Cardiovascular Normal S1, Normal S2 Lungs Normal Air Movement Abdomen Normal Bowel Sounds, Soft, No Tenderness Neurological Strength at 5/5 X4 Ext, Sensation Intact, Cranial Nerves 3-12 NL Extremities No Clubbing, No Cyanosis, No Edema Vascular Normal Pulses Last 24 Hrs of Labs/Castillo: Laboratory Tests 09/06/16 1901: CBC w Diff NO MAN DIFF REQ, RBC 4.27, MCV 93.5, MCH 31.2 H, RDW 12.3, MPV 8.6, Gran % 87.5 H, Lymphocytes % 7.2 L, Monocytes % 5.2, Eosinophils % 0, Basophils % 0.1, Absolute Granulocytes 5.9, Absolute Lymphocytes 0.5 L, Absolute Monocytes 0.4, Absolute Eosinophils 0, Absolute Basophils 0, PUBS MCHC 33.3 09/06/16 183: Lactic Acid 1.2 09/06/16 183: Anion Gap 9, Estimated GFR > 60, BUN/Creatinine Ratio 20.0 09/06/16 1135: CBC w Diff NO MAN DIFF REQ, RBC 4.42, MCV 93.0, MCH 31.1 H, RDW 12.2, MPV 8.4, Gran % 80.9 H, Lymphocytes % 8.2 L, Monocytes % 10.5 H, Eosinophils % 0.2, Basophils % 0.2, Absolute Granulocytes 5.9, Absolute Lymphocytes 0.6 L, Absolute Monocytes 0.8 H, Absolute Eosinophils 0, Absolute Basophils 0, PUBS MCHC 33.4, Urinalysis LIGHT H, Urine Color YEL, Urine Clarity HAZY H, Urine pH 6.5, Ur Specific [place] 1.025, Urine Protein 100 H, Urine Ketones TRACE H, Urine Nitrite NEG, Urine Bilirubin NEG@ICTO, Urine Urobilinogen 1.0, Ur Leukocyte Esterase SMALL H, Ur Microscopic SEDIMENT EXAMINED, Urine RBC 15-25 H, Urine WBC 15-25 H, Ur Epithelial Cells MOD H, Urine Bacteria MOD H, Urine Mucus FEW, Urine Hemoglobin LARGE H, Urine Glucose NEG 09/06/16 1133: Anion Gap 7, Estimated GFR > 60, BUN/Creatinine Ratio 24.3, Glucose 109 H, Calcium 8.9 09/06/16 1110: Sodium Cancelled, Potassium Cancelled, Chloride Cancelled, Carbon Dioxide Cancelled, Anion Gap Cancelled, BUN Cancelled, Creatinine Cancelled, BUN/ Creatinine Ratio Cancelled, Glucose Cancelled, Calcium Cancelled Microbiology 09/06 1137 BLOOD: Blood Culture - RECD 09/06 1135 BLOOD: Blood Culture - RECD Assessment/Plan Assessment: This is a 41-year-old female with past medical history significant for multiple admissions for kidney stones and stent placements, hyperlipidemia, hypothyroidism, hypertension presented to [facility] emergency department this morning with chief complaint of fever, nausea, vomiting, left flank pain, dysuria for 1 day. Of note patient was seen at the emergency room on 09/05/[address] abdomen showed a left ureteral stone 4 mm and moderate to severe hydroureteronephrosis, left lower pole kidney stone 3 mm. She was discharged from the emergency room on pain medications, nausea medications and she was advised to follow-up with urologist. She came to the emergency department again this morning 09/06/2016 and she was evaluated by Dr. Alvarez urologist in the emergency room. She was taken to the operating room this afternoon for cystoscopy and stone removal and left ureteral stent placement. Admission vitals-febrile to 101.9, tachycardia 104, respiratory rate 20, blood pressure 121/74, saturating at 100% on room air. 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 Abdomen CT IMPRESSION: 1. Distal left ureteral calculus measuring 4 mm with moderate to severe hydroureteronephrosis. 2. Left lower pole renal calculus measuring 3 mm. Problem list 1. Sepsis from Acute pyelonephritis 2. Left ureteral stone status post stone removal and stent placement 3. Moderate to severe hydroureteronephrosis left kidney 4. Hypertension 5. hypothyroidism Sepsis from acute pyelonephritis Patient presented to the emergency department with fever, chills, nausea, vomiting, left flank pain, dysuria. Denies any hematuria. No relief with pain medication. She is febrile 101.9 with a tachycardia. Fulfilled SIRS criteria on admission and the source of sepsis is most possibly urine. CAT scan abdomen showed a left ureteral stone 4 mm. Moderate to severe hydroureteronephrosis. * cystoscopy: left ureteroscopy with basket extraction of stone, laser standby, retrograde pyelogram And left ureteral stent placement was done. * She was admitted to general medicine floor for further management of sepsis. * Monitor vitals closely every shift * Monitor closely for blood pressures, she had borderline blood pressures 104/ 70. * Monitor for fever, leukocytosis, worsening flank pain * Antinausea medications * IV ceftriaxone * IV fluids normal saline * We will follow-up blood cultures * Monitor CBCs * Will follow-up urine cultures Left ureteral stone/moderate to severe hydroureteronephrosis IMPRESSION: 1. Distal left ureteral calculus measuring 4 mm with moderate to severe hydroureteronephrosis. 2. Left lower pole renal calculus measuring 3 mm. * cystoscopy: left ureteroscopy with basket extraction of stone, laser standby, retrograde pyelogram * And left ureteral stent placement was done. * Abdominal x-ray confirmed the left ureteral stent placement * Will follow up Dr. Alvarez recommendations. History of kidney stones Patient has past medical history significant for kidney stones for 5 years. She underwent 5 procedures-stone removal, stent placements. She was admitted at [facility] 3 years ago for right ureteral stent placement. * We'll try to get records from [facility] * Will follow up Dr. Alvarez recommendation. History of hypertension * Not on any home medications History of hypothyroidism * Not on levothyroxine Pain pathway-Tylenol, Vicodin, morphine for mild/moderate and severe pain DVT prophylaxis subcutaneous Lovenox Regular diet Full code As Ranked By This Provider Problem List: 1. Abdominal pain 2. Vomiting 3. Renal colic on left side Core Measures/Miscellaneous Acute Coronary Syndrome ACS Diagnosis: No Cerebrovascular Accident CVA/TIA Diagnosis: No Congestive Heart Failure CHF Diagnosis: No VTE (View Protocol) VTE Risk Factors: Age > 40 [facility] prophylaxis d/t: No contraindications No VTE Pharm Prophylaxis d/t: No contraindications VTE Diagnosis: No VTE Type: NONE VTE Confirmed by (Test): NONE Sepsis (View Protocol) Severe Sepsis Present: No Septic Shock Septic Shock Present: No Miscellaneous Documentation Attending Case Discussed With: dr. sullivan Primary Care Physician: DAPHNE COX MD Patient sees these Specialists urology Level of Patient Care: General Medicine JENIFER MERRILL 06/20/17 1810: Resident Review Statement Resident Statement: examined this patient, discussed with bakery pastry internship, agreed with bakery pastry internship, discussed with family, reviewed EMR data (avail), discussed with nursing , discussed with case mgmt, reviewed images, amended to note Other Findings: 41-year-old woman was admitted for left obstructing ureteral stone status post ureteroscopy and basket extraction of the stone and retrograde stent placement.Patient has a past medical history significant for multiple kidney stones and prior episode of pyelonephritis about 3 years ago secondary to obstructing ureter stone which was treated in [facility] with IV antibiotics and stone removal procedure. She has been following up regularly with Dr. Alvarez. According to patient's her latest abdominal CT scan about a month ago was insignificant. On Monday nights patient initially felt a mild, sharp, left flank pain. She denies any rigors, fever, feeling nauseous and vomiting by that time. According to patient her left-sided flank pain progressively worsens over time, she also started developing rigors and spikes of fever. Yesterday at 2 AM patient presented at [facility] emergency room for left-sided flank pain (7 or 8 out of 10, intermittent, sharp, radiating towards the genital area, associated with feeling nausea, and one or 2 episodes of vomiting), associated with fever and rigors. CT scan of the abdomen and pelvis was obtained which showed the 4 mm non-obstructive ureter stone. Patient was discharged on analgesics and instructed to follow-up with Dr. Alvarez. Overnight patient conditions worsens, patient returned to emergency room with high-grade fever intermittent/colicky left-sided flank pain, N/V. She was seen by Dr. Alvarez and taken to operative room for urethroscopy and stone extraction. Post procedure patient was admitted to general medical floor for IV hydration and antibiotic therapy. of note, ruptured hemorrhagic cyst, laparoscopic tubal sterilization. Review of system: Complains of left flank pain, generalized soreness and fatigue. Physical exam: Alert and oriented 3, HEENT: Mucous membranes are dry, heart and lungs are normal S1-S2 normal air entry; abdomen: Soft, no guarding no rebound, left CVA tenderness; extremities: Warm, peripheral pulses 2+ symmetric, CTR less than 3, skin turgor normal. Past surgical history: Ruptured hemorrhagic cyst; and laparoscopic tubal sterilization. Vital signs: 101, 18, 119/61, 98% Pertinent data 7.380% no bandemia, H&H: 13.7/41.1, platelet 125 ( last platelet number was 139) . Assessment and plan 41-year-old woman was admitted for obstructing distal left ureteral stone with moderate to severe hydroureteronephrosis s/p stone extraction and then placement. List of problems #1 obstructing ureteral stone and severe hydro-ureteral nephrosis s/p stent placment * Admit to general medical floor * Check vital signs every 4; goal: MAP> 65mmhg otherwise vigorous IV hydration, and transferred to ICU for central line placement vasopressor. * Normal saline 1000 ML bolus * Normal saline 150 mL per hour * Strict ins and outs control; goal: 0.5 mL per KG per hour urine output * CBC, BEP, lactic acid is status, trend lactic acid every 3 hours * Repeat labs in the a.m. * Follow blood culture results * Ceftriaxone 1000 mg IV daily * Follow Dr. Alvarez's notes * Follow attendings note DVT prophylaxis-enoxaparin 40 units subcutaneous daily Pain management mild/moderate and severe pain pathway Full code SHIVANI SULLIVAN MD 09/06/16 2200: Attending MD Review Statement Attending Statement Attending MD Statement: examined this patient, discuss w/resident/PA/GAS WELL PUMPER, agreed w/resident/PA/GAS WELL PUMPER, reviewed EMR data (avail) Attending Assessment/Plan: 41F PMH recurrent nephrolithiasis underwent cystoscopy with stone retrieval and ureteral stent placement, with post-procedure fever, rigors, malaise, and generalized weakness. Febrile 101.9, tachycardic 110, WBC 6. Patient appears ill and fatigued. 1. Sepsis 2. Acute pyelonephritis 3. Nephrolithiasis s/p ureteral stent Plan - Admit to general medicine - Start Ceftriaxone - IV hydration - Blood and urine cultures - Follow urology recommendations - Continue home medications - DVT PPx
[2016-09-06 18:15] VITALS: BP 120/78
--- NOTE | 2016-09-06 19:45 | NUR ---
NURSING NOTE: PT ARRIVED TO FLOOR VIA STRETCHER. PT AMBULATED FROM STRETCHER TO BED. VSS CHARTED. C/O HEADACHE 05/27. IVF INFUSING.
[2016-09-06 19:53] LABS: ABSOLUTE BASOPHIL COUNT 0 /CUMM (0.0-0.2); ABSOLUTE EOSINOPHIL COUNT 0 /CUMM (0.0-0.7); ABSOLUTE GRANULOCYTE CT 5.9 /CUMM (1.4-6.5); ABSOLUTE LYMPH COUNT 0.5 /CUMM (1.2-3.4); ABSOLUTE MONOCYTE COUNT 0.4 /CUMM (0.10-0.60); HEMATOCRIT 39.9 % (37-47); MEAN CORPUSCULAR HGB 31.2 PG (27.0-31.0); MEAN CORPUSCULAR HGB CONC 33.3 G/DL (33.0-37.0); MEAN CORPUSCULAR VOLUME 93.5 FL (81.0-99.0); MEAN PLATELET VOLUME 8.6 FL (7.4-10.4); PLATELET COUNT 127 /CUMM (130-400); RBC DISTRIBUTION WIDTH 12.3 % (11.5-14.5); RED BLOOD CELL CT 4.27 /CUMM (4.20-5.40); WHITE BLOOD CELL COUNT 6.8 /CUMM (4.8-10.8)
[2016-09-06 19:55] LABS: BASOPHIL % 0.1 % (0.0-2.0); EOSINOPHIL % 0 % (0-5); GRANULOCYTE % 87.5 % (42.2-75.2)
--- NOTE | 2016-09-06 22:03 | Admission Certification ---
Admission Certification Certification Statement - As attending physician, I certify that at the time of - admission, based on clinical presentation, severity of - symptoms, need for further diagnostic testing and - therapeutic interventions, and risk of adverse outcomes - without in-hospital treatment, in my clinical assessment, - this patient requires an acute hospital stay for a minimum - of two nights or longer. I have also considered psychsocial - factors such as support system, advanced age, financial - issues, cognitive issues, and failed out-patient treatments, - past re-admission history, safety of patient, and lack of - compliance as applicable. Specific rationale supporting this admission is: Sepsis secondary to UTI following ureteral stone removal
[2016-09-06 22:32] VITALS: BP 118/72
[2016-09-07 06:00] VITALS: BP 118/72
[2016-09-07 08:14] LABS: ABSOLUTE BASOPHIL COUNT 0 /CUMM (0.0-0.2); ABSOLUTE EOSINOPHIL COUNT 0 /CUMM (0.0-0.7); ABSOLUTE GRANULOCYTE CT 4.1 /CUMM (1.4-6.5); ABSOLUTE LYMPH COUNT 0.8 /CUMM (1.2-3.4); ABSOLUTE MONOCYTE COUNT 0.7 /CUMM (0.10-0.60); BASOPHIL % 0.2 % (0.0-2.0); EOSINOPHIL % 0 % (0-5); GRANULOCYTE % 73.5 % (42.2-75.2); HEMATOCRIT 37.1 % (37-47); MEAN CORPUSCULAR HGB 31.5 PG (27.0-31.0); MEAN CORPUSCULAR HGB CONC 33.4 G/DL (33.0-37.0); MEAN PLATELET VOLUME 8.4 FL (7.4-10.4); PLATELET COUNT 122 /CUMM (130-400); RBC DISTRIBUTION WIDTH 12.3 % (11.5-14.5); RED BLOOD CELL CT 3.95 /CUMM (4.20-5.40); WHITE BLOOD CELL COUNT 5.6 /CUMM (4.8-10.8)
--- NOTE | 2016-09-07 08:19 | PN- Housestaff ---
See Addendum Subjective Follow-up For: 1. Sepsis from Acute pyelonephritis 2. Left ureteral stone status post stone removal and stent placement 3. Moderate to severe hydroureteronephrosis left kidney Complaints: pain scale (0-10) Subjective: Patient was seen and examined this morning. She is alert awake and oriented to time place and person. No acute events noticed overnight Patient reports mild headache and dizziness. She denies any pain in her flanks, frequency, urgency, dysuria No hematuria She feels some pressure at the site of stent placement Denied any fever, chills Offers no other complaints Vitals remained stable, afebrile, heart rate 76, respiratory rate 22, blood pressure 128/72, saturating at 94 on room air Review of Systems Constitutional: Reports: no symptoms. Objective Last 24 Hrs of Vital Signs/I&O Vital Signs Date Time Temp Pulse Resp B/P B/P Pulse O2 O2 Flow FiO2 Mean Ox Delivery Rate 09/07 0600 98.3 76 22 118/72 94 Room Air 09/06 2232 98.4 73 22 118/72 95 Room Air 09/06 1815 99.0 86 18 120/78 95 Room Air Room Air 09/06 1229 101.2 101 18 119/61 98 Room Air Room Air Intake & Output 09/07 1600 09/07 0800 09/07 0000 Intake Total 1200 1000 Output Total 350 400 Balance 850 600 Intake, IV 1200 1000 Output, Urine 350 400 Patient 93.894 kg Weight Physical Exam General Appearance: Alert, Oriented X3, Cooperative, No Acute Distress Skin: No Rashes, No Breakdown HEENT: Atraumatic, PERRLA, EOMI, Mucous Membr. moist/pink Neck: Supple, No JVD Lymphatic: Cervical nl Cardiovascular: Normal S1, Normal S2 Lungs: Normal Air Movement Abdomen: Normal Bowel Sounds, Soft, No Tenderness Neurological: Normal Speech, Strength at 5/5 X4 Ext, Normal Tone, Sensation Intact, Cranial Nerves 3-12 NL Extremities: No Clubbing, No Cyanosis, No Edema Vascular: Pulses Symmetrical Current Medications: Current Medications Sig/Lex Start time Last Medication Dose Route Stop Time Status Admin Acetaminophen 650 MG Q6P PRN 09/06 1930 AC 09/06 PO 2005 Acetaminophen 1,000 MG ONCE ONE 09/06 1215 DC 09/06 N/A 1 UNIT IV 09/06 1229 1205 Acetaminophen 0 .STK-MED ONE 09/06 1148 DC IV Acetaminophen 650 MG ONCE ONE 09/06 1130 CAN PO 09/06 1131 Acetaminophen/ 1 TAB Q6P PRN 09/06 1930 AC 09/07 Hydrocodone Bitart PO 1143 Ceftriaxone Sodium 1,000 MG DAILY 09/07 1000 AC 09/07 IV 0813 Ceftriaxone Sodium 2,000 MG Q24H 09/06 1800 DC IV Docusate Sodium 100 MG DAILY NEEDED PRN 09/07 1145 AC PO Enoxaparin Sodium 40 MG DAILY 09/07 1047 DC SC Enoxaparin Sodium 40 MG DAILY 09/06 1918 AC 09/07 SC 0813 Hydromorphone HCl 2 MG .STK-MED ONE 09/06 1642 DC IM 09/06 1643 Morphine Sulfate 2 MG Q4P PRN 09/06 1930 AC IV Ondansetron HCl 4 MG ONCE ONE 09/06 2230 DC 09/06 IV 09/06 223 2235 Ondansetron HCl 0 .STK-MED ONE 09/06 1148 DC .ROUTE Polyethylene Glycol 17 GM DAILY PRN 09/07 1145 UNVr PO Senna/Docusate Sodium 2 TAB DAILY PRN 09/07 1145 UNVr PO Sodium Chloride 1,000 ML BOLUS ONE 09/06 1700 DC 09/06 IV 09/06 1759 1814 Sodium Chloride 1,000 ML .Q6H40M 09/06 1630 DC 09/07 IV 0143 Sodium Chloride 1,000 ML BOLUS ONE 09/06 1130 DC 09/06 IV 09/06 1229 1203 Last 24 Hrs of Lab/Castillo Results Last 24 Hrs of Labs/Mics: Laboratory Tests 09/07/16 06: Anion Gap 8, Estimated GFR > 60, BUN/Creatinine Ratio 20.0, CBC w Diff NO MAN DIFF REQ, RBC 3.95 L, MCV 94.0, MCH 31.5 H, RDW 12.3, MPV 8.4, Gran % 73.5, Lymphocytes % 14.6 L, Monocytes % 11.7 H, Eosinophils % 0, Basophils % 0.2, Absolute Granulocytes 4.1, Absolute Lymphocytes 0.8 L, Absolute Monocytes 0.7 H, Absolute Eosinophils 0, Absolute Basophils 0, PUBS MCHC 33.4 09/06/162207: Lactic Acid 1.4 06/20/17 1901: CBC w Diff NO MAN DIFF REQ, RBC 4.27, MCV 93.5, MCH 31.2 H, RDW 12.3, MPV 8.6, Gran % 87.5 H, Lymphocytes % 7.2 L, Monocytes % 5.2, Eosinophils % 0, Basophils % 0.1, Absolute Granulocytes 5.9, Absolute Lymphocytes 0.5 L, Absolute Monocytes 0.4, Absolute Eosinophils 0, Absolute Basophils 0, PUBS MCHC 33.3 09/06/16 1832: Lactic Acid 1.2 09/06/16 183: Anion Gap 9, Estimated GFR > 60, BUN/Creatinine Ratio 20.0 09/06/16 1446: Stone Analysis Pending, Stone Source Pending, Stone Nidus Pending, Stone Comment Pending, Stone Comment Pending Microbiology 09/07 25 URINE ROUT: Urine Culture - RECD Assessment/Plan Assessment: This is a 41-year-old female with past medical history significant for multiple admissions for kidney stones and stent placements, hyperlipidemia, hypothyroidism, hypertension presented to [facility] emergency department on 09/06/2016 with chief complaint of fever, nausea, vomiting, left flank pain, dysuria for 1 day. Of note patient was seen at the emergency room on 09/05/[address] abdomen showed a left ureteral stone 4 mm and moderate to severe hydroureteronephrosis, left lower pole kidney stone 3 mm. She was discharged from the emergency room on pain medications, nausea medications and she was advised to follow-up with urologist. She came to the emergency department again this morning 09/06/2016 and she was evaluated by Dr. Alvarez urologist in the emergency room. She was taken to the operating room this afternoon for cystoscopy and stone removal and left ureteral stent placement. Admission vitals-febrile to 101.9, tachycardia 104, respiratory rate 20, blood pressure 121/74, saturating at 100% on room air. 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 Abdomen CT IMPRESSION: 1. Distal left ureteral calculus measuring 4 mm with moderate to severe hydroureteronephrosis. 2. Left lower pole renal calculus measuring 3 mm. Problem list 1. Sepsis from Acute pyelonephritis 2. Left ureteral stone status post stone removal and stent placement 3. Moderate to severe hydroureteronephrosis left kidney 4. Hypertension 5. hypothyroidism Sepsis from acute pyelonephritis Patient presented to the emergency department with fever, chills, nausea, vomiting, left flank pain, dysuria. Denies any hematuria. No relief with pain medication. She is febrile 101.9 with a tachycardia. Fulfilled SIRS criteria on admission and the source of sepsis is most possibly urine. CAT scan abdomen showed a left ureteral stone 4 mm. Moderate to severe hydroureteronephrosis. * cystoscopy: left ureteroscopy with basket extraction of stone, laser standby, retrograde pyelogram And left ureteral stent placement was done. * She was admitted to general medicine floor for further management of sepsis. * Monitor vitals closely every shift * Monitoring closely for blood pressures, she had borderline blood pressures 104 /70. * Monitoring for fever, leukocytosis, worsening flank pain * Antinausea medications prn * IV ceftriaxone- day2 * IV fluids normal saline- discontinued after 2 bags * We will follow-up blood cultures * Monitor CBCs-WBC count remained stable, no leukocytosis, remained afebrile * Will follow-up urine cultures Left ureteral stone/moderate to severe hydroureteronephrosis IMPRESSION: 1. Distal left ureteral calculus measuring 4 mm with moderate to severe hydroureteronephrosis. 2. Left lower pole renal calculus measuring 3 mm. * cystoscopy: left ureteroscopy with basket extraction of stone, laser standby, retrograde pyelogram * And left ureteral stent placement was done. * Abdominal x-ray confirmed the left ureteral stent placement * Will follow up Dr. Alvarez recommendations. History of kidney stones Patient has past medical history significant for kidney stones for 5 years. She underwent 5 procedures-stone removal, stent placements. She was admitted at [facility] 3 years ago for right ureteral stent placement. * We'll try to get records from [facility] * Will follow up Dr. Alvarez recommendation. History of hypertension * Not on any home medications * Blood pressure borderline. * Improved 118/72 after hydration History of hypothyroidism * Not on levothyroxine Constipation * Bowel regimen was added Pain pathway-Tylenol, Vicodin, morphine for mild/moderate and severe pain DVT prophylaxis subcutaneous Lovenox Regular diet Full code Problem List: 1. Renal colic on left side 2. Ureteral stone 3. Fever Pain Ratin Pain Location: left flank Pain Goal: Remain pain free Pain Plan: Tylenol Ibuprofen Morphine Tomorrow's Labs & Rationales: CBCs in the setting of infection and kidney stone
[2016-09-07 14:24] VITALS: BP 126/70
--- NOTE | 2016-09-07 16:04 | Patient Discharge Instructions ---
Discharge Instructions General Discharge Information You were seen/treated for: Left ureter stone moderate to severe hydroureteronephrosis Acute pyelonephritis You had these procedures: Left ureteric stone 4 mm status post cystoscopy, stone removal and left ureter stent placement Special Instructions: Please follow-up with your primary care physician in one week after discharge please follow-up with urologist Dr. Alvarez within 1-2 weeks after discharge Drink plenty of fluids and keep yourself hydrated Complete antibiotic course Diet Continue normal diet: Yes Activity Full Activity/No Limits: Yes Acute Coronary Syndrome Inclusion Criteria At DC or during hospital stay patient has or had the following: ACS DIAGNOSIS No Discharge Core Measures Meds if any: Prescribed or Continued at Discharge Meds if any: NOT Prescribed or Continued at Discharge Congestive Heart Failure Inclusion Criteria At DC or during hospital stay patient has or had the following: CHF DIAGNOSIS No Discharge Core Measures Meds if any: Prescribed or Continued at Discharge Meds if any: NOT Prescribed or Continued at Discharge Cerebrovascular accident Inclusion Criteria At DC or during hospital stay patient has or had the following: CVA/TIA Diagnosis No Discharge Core Measures Meds if any: Prescribed or Continued at Discharge Meds if any: NOT Prescribed or Continued at Discharge Venous thromboembolism Inclusion Criteria VTE Diagnosis No VTE Type NONE VTE Confirmed by (Test) NONE Discharge Core Measures - Per Current guidelines, there needs to be overlap - treatment for the first 5 days of Warfarin therapy. - If discharged on Warfarin prior to 5 days of - overlap therapy, the patient will need to be - assessed for post discharge needs including - *Post discharge parental anticoagulation - *Warfarin and/or parental anticoagulation education - *Follow up date to check INR post discharge At least 5 days overlap therapy as Inpatient No Meds if any: Prescribed or Continued at Discharge Note: Overlap Therapy is Warfarin and Anticoagulant Meds if any: NOT Prescribed or Continued at Discharge
[2016-09-07 22:48] VITALS: BP 118/72
[2016-09-08 00:15] VITALS: BP 124/72
[2016-09-08 03:59] VITALS: BP 120/62
[2016-09-08 06:22] VITALS: BP 124/72
--- NOTE | 2016-09-08 07:00 | NUR ---
LATE ENTRY NURSING NOTE: PATIENTS TEMP 101.4 AT THIS TIME PER MST. MD Buddy BOONE PAGED TO BE MADE AWARE. WHILE AWAITING REPLY, PATIENT C/O NUMBESS IN HER FACE AND REQUESTED FOR HER TEMP TO BE RECHECKED. AT 0730 PATIENTS TEMP 99.8 ALL OTHER VSS, IN NO ACUTE DISTRESS, CALM AND SITTING UP IN BED. MD Lissett CUMMINS NOTIFIED OF THE ABOVE. MD AT BEDSIDE TO EVALUATE. DAY RN DAVID AWARE OF ABOVE WELL. CONT TO MONITOR.
[2016-09-08 07:44] LABS: ABSOLUTE BASOPHIL COUNT 0 /CUMM (0.0-0.2); ABSOLUTE EOSINOPHIL COUNT 0.1 /CUMM (0.0-0.7); ABSOLUTE GRANULOCYTE CT 3.9 /CUMM (1.4-6.5); ABSOLUTE LYMPH COUNT 1.3 /CUMM (1.2-3.4); ABSOLUTE MONOCYTE COUNT 0.8 /CUMM (0.10-0.60); BASOPHIL % 0.7 % (0.0-2.0); EOSINOPHIL % 2.3 % (0-5); GRANULOCYTE % 63.6 % (42.2-75.2); MEAN CORPUSCULAR HGB 31.3 PG (27.0-31.0); MEAN CORPUSCULAR HGB CONC 33.7 G/DL (33.0-37.0); MEAN CORPUSCULAR VOLUME 92.8 FL (81.0-99.0); PLATELET COUNT 146 /CUMM (130-400); RBC DISTRIBUTION WIDTH 12.4 % (11.5-14.5); WHITE BLOOD CELL COUNT 6.2 /CUMM (4.8-10.8)
[2016-09-08 08:22] LABS: HEMATOCRIT 42.6 % (37-47)
--- NOTE | 2016-09-08 08:22 | PN- Housestaff ---
MARIA G GOYAL 09/08/16 0822: Subjective Follow-up For: 1. Sepsis from Acute pyelonephritis 2. Left ureteral stone status post stone removal and stent placement 3. Moderate to severe hydroureteronephrosis left kidney Complaints: pain scale (0-10) Subjective: Patient was seen and examined this morning. She is alert awake and oriented to time place and person. No acute events noticed overnight. Patient spiked a temperature 101 this morning. Patient reports mild headache and dizziness. She reports pain in her flanks, frequency, urgency, dysuria No hematuria She feels some pressure at the site of stent placement Offers no other complaints Vitals remained stable, afebrile, heart rate 76, respiratory rate 22, blood pressure 128/72, saturating at 94 on room air Review of Systems Constitutional: Reports: no symptoms. Objective Last 24 Hrs of Vital Signs/I&O Vital Signs Date Time Temp Pulse Resp B/P B/P Pulse O2 O2 Flow FiO2 Mean Ox Delivery Rate 09/08 1257 99.6 86 20 130/76 96 Room Air 09/08 0738 99.8 09/08 0730 99.8 09/08 0648 101.4 09/08 0622 98.6 84 20 124/72 96 Room Air 09/08 0359 99.3 70 20 120/62 95 Room Air 09/08 0015 99.6 89 20 124/72 95 Room Air 09/07 2357 99.6 09/07 2310 98.9 09/07 2248 99.9 85 22 118/72 100 Room Air 09/07 2216 1001.0 Intake & Output 09/08 1600 09/08 0800 09/08 0000 Intake Total 400 270 470 Output Total 100 Balance 300 270 470 Intake, IV 0 30 20 Intake, Oral 400 240 450 Number 0 Bowel Movements Output, Urine 100 Physical Exam General Appearance: Alert, Oriented X3, Cooperative, No Acute Distress Skin: No Rashes, No Breakdown HEENT: Atraumatic, PERRLA, EOMI, Mucous Membr. moist/pink Neck: Supple, No JVD Lymphatic: Cervical nl Cardiovascular: Normal S1, Normal S2 Lungs: Normal Air Movement Abdomen: Normal Bowel Sounds, Soft, No Tenderness, left cva tender Extremities: No Clubbing, No Cyanosis, No Edema Vascular: Pulses Symmetrical Current Medications: Current Medications Sig/Lex Start time Last Medication Dose Route Stop Time Status Admin Acetaminophen 650 MG .STK-MED ONE 09/07 2216 DC PO 09/07 221 Acetaminophen 650 MG .STK-MED ONE 09/07 1642 DC PO 09/07 1643 Acetaminophen 650 MG Q6P PRN 09/06 193 AC 09/07 PO 2216 Acetaminophen/ 1 TAB Q6P PRN 09/06 1930 AC 09/08 Hydrocodone Bitart PO 06 Ceftriaxone Sodium 1,000 MG DAILY 09/07 1000 AC 09/08 IV 0903 Docusate Sodium 100 MG DAILY NEEDED PRN 09/07 1145 AC PO Enoxaparin Sodium 40 MG DAILY 09/06 1918 AC 09/08 SC 0906 Morphine Sulfate 2 MG Q4P PRN 09/06 193 AC IV Ondansetron HCl 4 MG Q6P PRN 09/08 0900 AC IV Ondansetron HCl 4 MG ONCE ONE 09/08 0630 DC 09/08 IV 09/08 0631 0645 Ondansetron HCl 4 MG ONCE ONE 09/07 2214 DC 09/07 IV 09/07 221 2221 Polyethylene Glycol 17 GM DAILY PRN 09/07 1145 AC PO Senna/Docusate Sodium 2 TAB DAILY PRN 09/07 1145 AC PO Last 24 Hrs of Lab/Castillo Results Last 24 Hrs of Labs/Mics: Laboratory Tests 09/08/16 0630: Anion Gap 10, Estimated GFR > 60, BUN/Creatinine Ratio 18.6, CBC w Diff NO MAN DIFF REQ, RBC 4.60, MCV 92.8, MCH 31.3 H, RDW 12.4, MPV 8.0, Gran % 63.6, Lymphocytes % 21.2, Monocytes % 12.2 H, Eosinophils % 2.3, Basophils % 0.7, Absolute Granulocytes 3.9, Absolute Lymphocytes 1.3, Absolute Monocytes 0.8 H, Absolute Eosinophils 0.1, Absolute Basophils 0, PUBS MCHC 33.7 Microbiology 09/08 1140 BLOOD: Blood Culture - RECD 09/08 1130 BLOOD: Blood Culture - RECD 09/08 1022 URINE ROUT: Urine Culture - COLB Assessment/Plan Assessment: This is a 41-year-old female with past medical history significant for multiple admissions for kidney stones and stent placements, hyperlipidemia, hypothyroidism, hypertension presented to [facility] emergency department on 09/06/2016 with chief complaint of fever, nausea, vomiting, left flank pain, dysuria for 1 day. Of note patient was seen at the emergency room on 09/05/[address] abdomen showed a left ureteral stone 4 mm and moderate to severe hydroureteronephrosis, left lower pole kidney stone 3 mm. She was discharged from the emergency room on pain medications, nausea medications and she was advised to follow-up with urologist. She came to the emergency department again this morning 09/06/2016 and she was evaluated by Dr. Alvarez urologist in the emergency room. She was taken to the operating room this afternoon for cystoscopy and stone removal and left ureteral stent placement. Admission vitals-febrile to 101.9, tachycardia 104, respiratory rate 20, blood pressure 121/74, saturating at 100% on room air. NEUROLOGY SPECIALIST, BEP normal Urine analysis showed esterases, WBC, few bacteria Abdominal x-ray FINDINGS/IMPRESSION: The spot films document the steps taken in placement of a left ureteral stent, the proximal end of which is in the distal portion of the left renal pelvis and the distal end in the bladder. Abdomen CT IMPRESSION: 1. Distal left ureteral calculus measuring 4 mm with moderate to severe hydroureteronephrosis. 2. Left lower pole renal calculus measuring 3 mm. Problem list 1. Sepsis from Acute pyelonephritis 2. Left ureteral stone status post stone removal and stent placement 3. Moderate to severe hydroureteronephrosis left kidney 4. Hypertension 5. hypothyroidism Sepsis from acute pyelonephritis Patient presented to the emergency department with fever, chills, nausea, vomiting, left flank pain, dysuria. Denies any hematuria. No relief with pain medication. She is febrile 101.9 with a tachycardia. Fulfilled SIRS criteria on admission and the source of sepsis is most possibly urine. CAT scan abdomen showed a left ureteral stone 4 mm. Moderate to severe hydroureteronephrosis. * cystoscopy: left ureteroscopy with basket extraction of stone, laser standby, retrograde pyelogram And left ureteral stent placement was done. * She was admitted to general medicine floor for further management of sepsis. * Monitor vitals closely every shift * Monitoring closely for blood pressures, she had borderline blood pressures 104 /70. * Monitoring for fever, leukocytosis, worsening flank pain * Antinausea medications prn * IV ceftriaxone- day3, spiked temperature max 101 overnight * IV fluids normal saline- discontinued after 2 bags * We will follow-up blood cultures -negative so far * Monitor CBCs-WBC count remained stable, no leukocytosis * Will follow-up urine cultures * Follow-up repeat urine culture and blood cultures * Follow-up renal ultrasound Left ureteral stone/moderate to severe hydroureteronephrosis IMPRESSION: 1. Distal left ureteral calculus measuring 4 mm with moderate to severe hydroureteronephrosis. 2. Left lower pole renal calculus measuring 3 mm. * cystoscopy: left ureteroscopy with basket extraction of stone, laser standby, retrograde pyelogram * And left ureteral stent placement was done. * Abdominal x-ray confirmed the left ureteral stent placement * Will follow up Dr. Alvarez recommendations. History of kidney stones Patient has past medical history significant for kidney stones for 5 years. She underwent 5 procedures-stone removal, stent placements. She was admitted at [facility] 3 years ago for right ureteral stent placement. * We'll try to get records from [facility] * Will follow up Dr. Alvarez recommendation. History of hypertension * Not on any home medications * Blood pressure borderline. * Improved 118/72 after hydration History of hypothyroidism * Not on levothyroxine Constipation * Bowel regimen was added Pain pathway-Tylenol, Vicodin, morphine for mild/moderate and severe pain DVT prophylaxis subcutaneous Lovenox Regular diet Full code Problem List: 1. Renal colic on left side 2. Ureteral stone 3. Fever Pain Ratin Pain Location: Bilateral flanks Pain Goal: Remain pain free Pain Plan: Tylenol Vicodin Tomorrow's Labs & Rationales: cbc in the setting of pyelonephritis and fever JUAN SAL,[facility] 09/08/16 1354: Attending MD Review Statement Attending Statement Attending MD Statement: examined this patient, discuss w/resident/PA/TENNIS BALL COVER CEMENTER, agreed w/resident/PA/TENNIS BALL COVER CEMENTER, reviewed EMR data (avail), discussed with nursing, discussed with case mgmt, amended to note Attending Assessment/Plan: Patient seen and examined, not feeling well. She was feeling very tired and weak this morning. She had a temp spike 101F. She still has no appetite. She was still complains of pain both in the right flank as well as the left flank today. At this point we will repeat the blood cultures and urine culture because patient spiked a fever. We will replete the kidney ultrasound to make sure there is nothing else. Continue current antibiotics. We'll follow-up on the cultures. Patient has been started on Zofran as she was feeling nauseous. She is on Vicodin and when necessary morphine. Patient on Lovenox for DVT prophylaxis.
--- NOTE | 2016-09-08 09:00 | NUR ---
PATIENT REQUESTING SOFT TOUCH; MESSAGE LEFT WITH [employer] [id number];
--- NOTE | 2016-09-08 11:42 | NUR ---
BLOOD CULTURES DRAWN; PATIENT OFF FLOOR VIA STRETCHER TO ULTRASOUND;
[2016-09-08 12:57] VITALS: BP 130/76
--- NOTE | 2016-09-08 15:00 | ULTRASOUND REPORT ---
EXAMINATION: US RETROPERITONEAL COMPLETE (RENAL) CLINICAL INFORMATION: Fever and left-sided flank pain. Evaluate for hydronephrosis. COMPARISON: CT scan of the abdomen and pelvis dated 09/05/2016 TECHNIQUE: Real-time imaging of the kidneys and bladder. FINDINGS: RIGHT KIDNEY: 11.1 x 5.0 x 5.4 cm (SAG x AP x TRV). The kidney is normal in size, contour, and echogenicity. Renal cortical thickness is normal. No calculi or focal parenchymal lesions. No hydronephrosis. LEFT KIDNEY: 12.8 x 6.3 x 5.6 cm (SAG x AP x TRV). The kidney is normal in size, contour, and echogenicity. Renal cortical thickness is normal. No focal parenchymal lesions. There is a nonobstructing 0.4 x 0.3 x 0.4 cm lower pole left renal calcification, unchanged from CT scan. The moderate left-sided hydronephrosis seen on CT scan has completely resolved.. BLADDER: Decompressed and not assessed. The patient voided just before the exam. IMPRESSION: 1. Interval resolution of previously seen left-sided hydroureteronephrosis. 2. No change in nonobstructing lower pole left renal calcification. 3. Bilateral kidneys otherwise normal.
--- NOTE | 2016-09-08 16:16 | PN- Urology ---
Surgical Brief Attending Note Brief Attending Note: pt with fever last night: currently feeling better with VSS and afebrile: cultures pending: When culture sensitivity, and afebrile; recommend convert to PO abx and dc home if afebrile >24 hours.
[2016-09-08] MEDS ORDERED: KEFLEX500 M1 PO (16:17)
[2016-09-08 17:03] VITALS: BP 132/71
[2016-09-08 21:28] VITALS: BP 122/80
[2016-09-09 01:31] VITALS: BP 110/70
[2016-09-09 06:49] VITALS: BP 107/65
--- NOTE | 2016-09-09 08:36 | PN- Housestaff ---
MARIA G GOYAL 09/09/16 0836: Subjective Follow-up For: 1. Sepsis from Acute pyelonephritis 2. Left ureteral stone status post stone removal and stent placement 3. Moderate to severe hydroureteronephrosis left kidney Complaints: pain scale (0-10) Subjective: Patient was seen and examined this morning. She is alert awake and oriented to time place and person. No acute events noticed overnight. Patient denies any fever, chills. Patient denies any headache, dizziness, lightheadedness. She feels much better today, appetite improved. Denies any hematuria, frequency, urgency, dysuria Reports mild discomfort bilateral flanks. Vitals remained stable, afebrile, heart rate 76, respiratory rate 22, blood pressure 128/72, saturating at 94 on room air Review of Systems Constitutional: Reports: no symptoms. Objective Last 24 Hrs of Vital Signs/I&O Vital Signs Date Time Temp Pulse Resp B/P B/P Pulse O2 O2 Flow FiO2 Mean Ox Delivery Rate 09/09 1027 98.3 62 18 104/60 96 Room Air 09/09 0649 98.5 74 20 107/65 97 Room Air 09/09 0131 97.7 70 18 110/70 95 Room Air 09/08 2128 98.9 88 20 122/80 94 Room Air 09/08 1703 99.5 94 20 132/71 96 Room Air Intake & Output 09/09 1600 09/09 0800 09/09 0000 Intake Total 490 720 Output Total 600 Balance 490 120 Intake, IV 10 Intake, Oral 480 720 Number 0 Bowel Movements Output, Urine 600 Physical Exam General Appearance: Alert, Oriented X3, Cooperative, No Acute Distress Skin: No Rashes, No Breakdown HEENT: Atraumatic, PERRLA, EOMI, Mucous Membr. moist/pink Neck: Supple, No JVD Lymphatic: Cervical nl Cardiovascular: Normal S1, Normal S2 Lungs: Normal Air Movement Abdomen: Normal Bowel Sounds, Soft, No Tenderness Neurological: Normal Speech, Strength at 5/5 X4 Ext, Normal Tone Extremities: No Clubbing, No Cyanosis, No Edema, Normal Pulses Vascular: Normal Pulses, Pulses Symmetrical Current Medications: Current Medications Sig/Lex Start time Last Medication Dose Route Stop Time Status Admin Acetaminophen 650 MG Q6P PRN 09/06 1929 AC 09/07 PO 2216 Acetaminophen/ 1 TAB Q6P PRN 09/06 1929 AC 09/09 Hydrocodone Bitart PO 0632 Ceftriaxone Sodium 1,000 MG DAILY 09/07 1000 AC 09/09 IV 0900 Docusate Sodium 100 MG DAILY NEEDED PRN 09/07 1145 AC PO Enoxaparin Sodium 40 MG DAILY 09/06 1918 AC 09/09 SC 0900 Morphine Sulfate 2 MG Q4P PRN 09/06 1930 AC IV Ondansetron HCl 4 MG Q6P PRN 09/08 0900 AC IV Polyethylene Glycol 17 GM DAILY PRN 09/07 1145 AC 09/08 PO 1655 Senna/Docusate Sodium 2 TAB DAILY PRN 09/07 1145 AC PO Last 24 Hrs of Lab/[place] Results Last 24 Hrs of Labs/Mics: Laboratory Tests 09/09/16 0730: CBC w Diff NO MAN DIFF REQ, RBC 4.27, MCV 92.0, MCH 31.3 H, RDW 12.3, MPV 7.6, Gran % 57.3, Lymphocytes % 24.6, Monocytes % 12.3 H, Eosinophils % 5.2 H, Basophils % 0.6, Absolute Granulocytes 3.4, Absolute Lymphocytes 1.4, Absolute Monocytes 0.7 H, Absolute Eosinophils 0.3, Absolute Basophils 0, PUBS MCHC 34.0 Assessment/Plan Assessment: This is a 41-year-old female with past medical history significant for multiple admissions for kidney stones and stent placements, hyperlipidemia, hypothyroidism, hypertension presented to [facility] emergency department on 09/06/2016 with chief complaint of fever, nausea, vomiting, left flank pain, dysuria for 1 day. Of note patient was seen at the emergency room on 09/05/[address] abdomen showed a left ureteral stone 4 mm and moderate to severe hydroureteronephrosis, left lower pole kidney stone 3 mm. She was discharged from the emergency room on pain medications, nausea medications and she was advised to follow-up with urologist. She came to the emergency department again this morning 09/06/2016 and she was evaluated by Dr. Alvarez urologist in the emergency room. She was taken to the operating room this afternoon for cystoscopy and stone removal and left ureteral stent placement. Admission vitals-febrile to 101.9, tachycardia 104, respiratory rate 20, blood pressure 121/74, saturating at 100% on room air. 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 Abdomen CT IMPRESSION: 1. Distal left ureteral calculus measuring 4 mm with moderate to severe hydroureteronephrosis. 2. Left lower pole renal calculus measuring 3 mm. Problem list 1. Sepsis from Acute pyelonephritis 2. Left ureteral stone status post stone removal and stent placement 3. Moderate to severe hydroureteronephrosis left kidney 4. Hypertension 5. hypothyroidism Sepsis from acute pyelonephritis Patient presented to the emergency department with fever, chills, nausea, vomiting, left flank pain, dysuria. Denies any hematuria. No relief with pain medication. She is febrile 101.9 with a tachycardia. Fulfilled SIRS criteria on admission and the source of sepsis is most possibly urine. CAT scan abdomen showed a left ureteral stone 4 mm. Moderate to severe hydroureteronephrosis. * cystoscopy: left ureteroscopy with basket extraction of stone, laser standby, retrograde pyelogram And left ureteral stent placement was done. * She was admitted to general medicine floor for further management of sepsis. * Monitor vitals closely every shift * Monitoring closely for blood pressures, she had borderline blood pressures 104 /70. * Monitoring for fever, leukocytosis, worsening flank pain * Antinausea medications prn * IV ceftriaxone- day4, remained afebrile with a normal leukocytosis count. Planning to discharge her today on Keflex 500 mg 4 times a day for 10 more days to complete 14 day course for acute pyelonephritis * IV fluids normal saline- discontinued after 2 bags * We will follow-up blood cultures -negative so far * Monitor CBCs-WBC count remained stable, no leukocytosis * Will follow-up urine cultures * Follow-up repeat urine culture and blood cultures * Follow-up renal ultrasound- NORMAL Left ureteral stone/moderate to severe hydroureteronephrosis IMPRESSION: 1. Distal left ureteral calculus measuring 4 mm with moderate to severe hydroureteronephrosis. 2. Left lower pole renal calculus measuring 3 mm. * cystoscopy: left ureteroscopy with basket extraction of stone, laser standby, retrograde pyelogram * And left ureteral stent placement was done. * Abdominal x-ray confirmed the left ureteral stent placement * Will follow up Dr. Alvarez recommendations. History of kidney stones Patient has past medical history significant for kidney stones for 5 years. She underwent 5 procedures-stone removal, stent placements. She was admitted at [facility] 3 years ago for right ureteral stent placement. * We'll try to get records from [facility] * Will follow up Dr. Alvarez recommendation. History of hypertension * Not on any home medications * Blood pressure borderline. * Improved 118/72 after hydration History of hypothyroidism * Not on levothyroxine Constipation * Bowel regimen was added Pain pathway-Tylenol, Vicodin, morphine for mild/moderate and severe pain DVT prophylaxis subcutaneous Lovenox Regular diet Full code Problem List: 1. Ureteral stone 2. Renal colic on left side Pain Ratin Pain Location: Bilateral flanks Pain Goal: Remain pain free Pain Plan: Tylenol, Vicodin Tomorrow's Labs & Rationales: None JABIER MARTINEZ MD 09/09/16 1309: Attending MD Review Statement Attending Statement Attending MD Statement: examined this patient, discuss w/resident/PA/UNDER CUTTING MACHINE OPERATOR, agreed w/resident/PA/UNDER CUTTING MACHINE OPERATOR, reviewed EMR data (avail), discussed with nursing, discussed with case mgmt, reviewed images, amended to note Attending Assessment/Plan: Patient seen and examined, overall feeling much better. Remains afebrile. Now claims that pain is improved. Feeling more energetic and has good appetite today. Renal ultrasound does not show any evidence of any significant abnormality and it shows interval resolution of previously seen hydronephrosis on the left. Patient is medically stable for discharge today on oral antibiotics. Will do a total of 14 day course. Patient to follow Dr. Alvarez as an outpatient. She will also follow with her primary care doctor as an outpatient.
[2016-09-09 08:37] LABS: ABSOLUTE BASOPHIL COUNT 0 /CUMM (0.0-0.2); ABSOLUTE EOSINOPHIL COUNT 0.3 /CUMM (0.0-0.7); ABSOLUTE GRANULOCYTE CT 3.4 /CUMM (1.4-6.5); ABSOLUTE LYMPH COUNT 1.4 /CUMM (1.2-3.4); ABSOLUTE MONOCYTE COUNT 0.7 /CUMM (0.10-0.60); BASOPHIL % 0.6 % (0.0-2.0); EOSINOPHIL % 5.2 % (0-5); GRANULOCYTE % 57.3 % (42.2-75.2); HEMATOCRIT 39.3 % (37-47); MEAN CORPUSCULAR HGB 31.3 PG (27.0-31.0); MEAN PLATELET VOLUME 7.6 FL (7.4-10.4); PLATELET COUNT 166 /CUMM (130-400); RBC DISTRIBUTION WIDTH 12.3 % (11.5-14.5); RED BLOOD CELL CT 4.27 /CUMM (4.20-5.40); WHITE BLOOD CELL COUNT 5.9 /CUMM (4.8-10.8)
[2016-09-09] MEDS ORDERED: KEFLEX500 M1 PO ×2 (10:26→11:20)
[2016-09-09 10:27] VITALS: BP 104/60
[2016-09-09] MEDS ORDERED: MIRALAX119 GM PO (11:20)
[2016-09-09] MEDS ORDERED: VICODIN 5-3001 EACH PO (13:03)
--- NOTE | 2016-09-09 14:13 | Discharge Summary ---
Visit Information Visit Dates Admission Date: 09/06/16 Discharge Date: 09/09/16 Hospital Course Course Attending Physician: NEERU ALVAREZ MD Primary Care Physician: DAPHNE COX MD Other Care Providers: Dr. Alvarez Consulting Request: Consulting Specialty: Urology Hospital Course: This is a 41-year-old female with past medical history significant for multiple admissions for kidney stones and stent placements, hyperlipidemia, hypothyroidism, hypertension presented to [facility] emergency department on 09/06/2016 with chief complaint of fever, nausea, vomiting, left flank pain, dysuria for 1 day. Of note patient was seen at the emergency room on 09/05/[address] abdomen showed a left ureteral stone 4 mm and moderate to severe hydroureteronephrosis, left lower pole kidney stone 3 mm. She was discharged from the emergency room on pain medications, nausea medications and she was advised to follow-up with urologist. She came to the emergency department again this morning 09/06/2016 and she was evaluated by Dr. Alvarez urologist in the emergency room. She was taken to the operating room this afternoon for cystoscopy and stone removal and left ureteral stent placement. Admission vitals-febrile to 101.9, tachycardia 104, respiratory rate 20, blood pressure 121/74, saturating at 100% on room air. 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 Abdomen CT IMPRESSION: 1. Distal left ureteral calculus measuring 4 mm with moderate to severe hydroureteronephrosis. 2. Left lower pole renal calculus measuring 3 mm. Problem list 1. Sepsis from Acute pyelonephritis 2. Left ureteral stone status post stone removal and stent placement 3. Moderate to severe hydroureteronephrosis left kidney 4. Hypertension 5. hypothyroidism Sepsis from acute pyelonephritis Patient presented to the emergency department with fever, chills, nausea, vomiting, left flank pain, dysuria. She was febrile 101.9 with tachycardia. Fulfilled SIRS criteria on admission and the source of sepsis most possibly urine. CAT scan abdomen showed a left ureteral stone 4 mm. Moderate to severe hydroureteronephrosis. She was taken to OR for cystoscopy and left ureteroscopy with basket extraction of stone and left ureteral stent placement. She was admitted to general medicine floor for further management of sepsis. We monitored her vitals closely every shift. We monitored her blood pressure as her blood pressure was borderline at the time of admission. She spiked a temperature max 100.1. She received IV ceftriaxone for 4 days in the hospital. She was discharged on Keflex 500 mg 4 times a day for 10 more days to complete 14 day course. She was given pain medications Vicodin at the time of discharge. Blood cultures, urine cultures were negative. She remained afebrile with a normal WBC count at the time of discharge. she was advised to follow-up with PCP and urology after discharge Left ureteral stone/moderate to severe hydroureteronephrosis IMPRESSION: 1. Distal left ureteral calculus measuring 4 mm with moderate to severe hydroureteronephrosis. 2. Left lower pole renal calculus measuring 3 mm. She is status post cystoscopy: left ureteroscopy with basket extraction of stone , laser standby, retrograde pyelogram And left ureteral stent placement was done. Abdominal x-ray confirmed the left ureteral stent placement History of kidney stones Patient has past medical history significant for kidney stones for 5 years. She underwent 5 procedures-stone removal, stent placements. She was admitted at [facility] 3 years ago for right ureteral stent placement. History of hypertension Not on any home medications, blood pressure under control without any medications History of hypothyroidism Not on levothyroxine Constipation Bowel regimen was added Pain pathway-Tylenol, Vicodin, morphine for mild/moderate and severe pain DVT prophylaxis subcutaneous Lovenox Regular diet Full code Complications: none Allergies: Coded Allergies: Sulfa (Sulfonamide Antibiotics) (THROAT SWELLS/ITCHY 09/05/16) Significant Procedures: Surgery Date: 09/06/16 Name of Procedure: cystoscopy: left ureteroscopy with basket extraction of stone, laser standby, retrograde pyelogram. fluoroscopy Pre-Operative Diagnosis: left obstructing ureter stone with sepsis Post-Operative Diagnosis: same Estimated Blood Loss: scant Surgeon/Clerk Typist: NEERU ALVAREZ MD Anesthesia: laryngeal mask airway Specimens: left ureter stone. Complications: none Operative/Procedure Note Note: The patient was taken to the operating room, and placed on the OR table in supine position. Timeout was performed, with the patient awake, in order to confirm correct identity, procedure, laterality, anesthesia, and other pertinent perioperative information. After adequate anesthesia and antibiotics, the patient was then placed lithotomy stirrups, draped and prepped in the usual surgical fashion. A 22 Burmese cystoscope sheath with 30 angle lens was inserted into the bladder without difficulty. Upon entering the bladder, the bladder was noted to be free of tumor free of stone. Both orifices were in their orthotopic position. The left ureter orifice was intubated with an 8fr cone-tip catheter and a retrograde pyelogram with fluoroscopy was performed revealing the 4 mm mid-left ureter stone, mid-ureter stricture, and proximal mild hydronephrosis. The cone-tipped catheter was removed, followed by insertion of a 0.035 Glidewire. The gluidewire was advanced into the left renal pelvis without difficulty. Correct placement of the wire was confirmed with fluoroscopy. Leaving the Glidewire in place, a flexible ureteroscope was advanced/rail-roaded over the gluidewire (with fluoroscopic visualization) and advanced into the bladder, and then into the left ureter, without significant difficulty. The ureteroscope was ealily advanced/inserted under direct visualization. Pyeloscopy and calyxoscopy was performed revealing no visible stones, but with findings noted in this report of upper calyx stone-obstructed lumen. The ureteroscope was retracted to visualize the stone. A zero-tip basket was then used to extract the ureter stone easily, and was then sent to pathology. The entire length of the ureter was visualize carefully on the way out with the ureteroscope, and no further stones, tumor, or strictures were confirmed. At this point the stand by yag laser was powered down. The 22 Burmese cystoscope sheath with a 30 angle lens was inserted once again, into the bladder. The left orifice was visualized, and a 0.035 Glidewire was then advanced into the left ureter. The Glidewire was advanced into the left renal pelvis, with fluoroscopic visualization, without difficulty. Over this Glidewire, a 6 x 22 Bard onlay stent was railroaded, with direct cystoscopic visualization, and fluoroscopic visualization. When the stent was in proper place, the Glidewire was removed, and the stent remained in good position. The bladder was then drained after the cystoscope was removed. The patient tolerated the procedures well, and was then taken to the recovery room in satisfactory condition. After discharge with abx. and pain meds, the patient is insturcted to have follow renal US, and post-op visit in 2-4 weeks. Pertinent Lab Results: Renal ultrasound IMPRESSION: 1. Interval resolution of previously seen left-sided hydroureteronephrosis. 2. No change in nonobstructing lower pole left renal calcification. 3. Bilateral kidneys otherwise normal. Abdomen x-ray FINDINGS/IMPRESSION: The spot films document the steps taken in placement of a left ureteral stent, the proximal end of which is in the distal portion of the left renal pelvis and the distal end in the bladder. Please refer to operative notes for further details. Disposition Summary Disposition Principal Diagnosis: 1. Sepsis from Acute pyelonephritis 2. Left ureteral stone status post stone removal and stent placement 3. Moderate to severe hydroureteronephrosis left kidney Additional Diagnosis: Headache Discharge Disposition: home or self care Discharge Instructions General Discharge Information Code Status: Full Code Patient's Diet: As tolerated Patient's Activity: as Tolerated Follow-Up Instructions/Appts: Follow-up with your primary care doctor within 1 week after discharge Follow-up with Dr. Avlarez urologist within 1-2 weeks after discharge Medications at Discharge Discharge Medications: Stop taking the following medications: Levothyroxine Sodium (Levothyroxine Sodium) 125 MCG TABLET ORAL DAILY BEFORE BREAKFAST Fenofibric Acid (Choline) (Fenofibric Acid) 135 MG CAPSULE.DR ORAL DAILY Continue taking these medications: Ibuprofen (Ibuprofen) 800 MG TABLET 1 Tablet ORAL THREE TIMES DAILY as needed for pain Qty = 30 Ondansetron (Zofran Odt) 4 MG TAB.RAPDIS 1 Tablet SUBLINGUAL THREE TIMES DAILY as needed for nausea Qty = 10 Hydrocodone/Acetaminophen ([place] 5-325 Tablet) 5 MG-325 MG TABLET 1-2 Tablet ORAL EVERY 4-6 HOURS NEEDED as needed for pain Qty = 6 Instructions: six...[id number] Comments: Last Taken:09/09/16 Time: 0630 AM Start taking the following new medications: Cephalexin (Keflex) 500 MG CAPSULE 1 Capsule ORAL EVERY SIX HOURS Qty = 40 No Refills Instructions: . Polyethylene Glycol 3350 (Miralax) 17 GRAM/DOSE POWDER 17 Gram ORAL DAILY as needed for CONSTIPATION Qty = 10 No Refills Hydrocodone/Acetaminophen (Vicodin 5-300 MG Tablet) 5 MG-300 MG TABLET 1 Tablet ORAL EVERY 4-6 HOURS as needed for FLANK PAIN Qty = 12 No Refills Copies To: KENNY SAL,DAPHNE; NEERU ALVAREZ MD
== END 2016-09-09 14:20 | DRG 854 ==
LOC: ERH 11:04 → PACUH 14:33 → 2NB 14:33 → ENRESERV 15:29 → ENTRNSPT 17:40 → CMPTRNSPT 18:01 → 2NB 18:06 → ENPENDDIS 09-09 11:23 → 2NB 09-09 14:20
PROVIDERS: Emergency Medicine; Hospitalist; Student in an Organized Health Care Education/Training Program; ADMIT Urology
PROC: 0TC78ZZ Extirpation of Matter from Left Ureter, Via Natural or Artificial Opening Endoscopic (ICD-10-PCS; principal; 2016-09-06)
PROC: BT1FZZZ Fluoroscopy of Left Kidney, Ureter and Bladder (ICD-10-PCS; 2016-09-06)
PROC: 0T778DZ Dilation of Left Ureter with Intraluminal Device, Via Natural or Artificial Opening Endoscopic (ICD-10-PCS; 2016-09-06)
DX: A41.9 Sepsis, unspecified organism (principal); N10 Acute pyelonephritis; N13.2 Hydronephrosis with renal and ureteral calculous obstruction; I10 Essential (primary) hypertension; E78.5 Hyperlipidemia, unspecified; E03.9 Hypothyroidism, unspecified
CPT/HCPCS: 2NSBP; 36415; 74000; 76775; 81001; 82355; 82436; 87040; 87086; 96374; 96375; C2617; J0131; J0696; J1650; J2250; J2405; J3010

== ENCOUNTER 2017-03-31 06:44 | Emergency (ER) | payer OTHER ==
[~2017-03-31] VITALS: Ht 172.7 cm; Wt 96.2 kg
[~2017-03-31 06:44] MED LIST changes: +KEFLEX500 M1 PO; +MIRALAX119 GM PO
--- NOTE | 2017-03-31 07:31 | ED GI/GU/ABDOMINAL COMPLAINT ---
History of Present Illness General Chief Complaint: Abdominal Pain/Flank Pain Stated Complaint: ABD SHARP PAIN Source: patient Exam Limitations: no limitations Vital Signs & Intake/Output Vital Signs & Intake/Output Vital Signs Date Time Temp Pulse Resp B/P B/P Pulse O2 O2 Flow FiO2 Mean Ox Delivery Rate 03/31 0657 98.0 83 20 133/74 100 Room Air Allergies Coded Allergies: Sulfa (Sulfonamide Antibiotics) (THROAT SWELLS/ITCHY 09/05/16) Reconcile Medications Levothyroxine Sodium 125 MCG TABLET 1 TAB PO DAILY AC THYROID (Reported) Triage Note: PT REPORTS HAVING "REALLY BAD STOMACH PAIN AND NAUSEA THAT BEGAN A FEW HOURS AGO. PT REPORTS HAVING GASTROENTERITIS YEARS AGO. PT REPORTS THAT WHEN SHE HAS A BOWEL MOVEMENT ONLY A SMALL AMOUNT COMES OUT AND IT HURTS TOO BAD TO PUSH. PT REPORTS THAT IT FEELS LIKE WHAT CONTRACTIONS FEEL LIKE. Triage Nurses Notes Reviewed? yes ? N Is pt currently ? No Onset: Abrupt Duration: hour(s):, constant, continues in ED Quality/Severity: cramping, sharpness, severe Location: periumbilical Radiation: no radiation Activities at Onset: sleep HPI: Patient presents for evaluation of a sharp periumbilical abdominal pain that began abruptly about 4:00 this morning. Patient describes it as a cramping pain like having labor. She states that she hasn't had any fever but has felt chills and has "head cold". He is also experienced nausea during the time of the abdominal pain. She denies any associated diarrhea dysuria or vaginal issues. She does not menstruate (she states she stopped menstruating about 6 years ago). She denies alcohol or drug or tobacco use. She had a small bowel movement this morning and a normal bowel movement last night. Past History Travel History Traveled to [place] past 21 day No Medical History Any Pertinent Medical History? 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 No Review of Systems Review of Systems Constitutional: Reports: no symptoms, see HPI. EENTM: Reports: no symptoms. Respiratory: Reports: no symptoms. Cardiovascular: Reports: no symptoms. GI: Reports: see HPI. Genitourinary: Reports: no symptoms. Musculoskeletal: Reports: no symptoms. Skin: Reports: no symptoms. Neurological/Psychological: Reports: no symptoms. Hematologic/Endocrine: Reports: no symptoms. Immunologic/Allergic: Reports: no symptoms. All Other Systems: Reviewed and Negative Physical Exam Physical Exam Gastrointestinal: SEE BELOW Comments: Gen.: Well-nourished, well-developed, no acute respiratory distress. Head: Normocephalic, atraumatic. Eyes: Normal inspection bilaterally Ears: Normal inspection bilaterally Nose: Normal inspection Throat/mouth : Moist mucosa Neck: Supple, full range of motion, no goiter Heart: Regular rate and rhythm, no murmurs rubs or gallops Lungs: Clear to auscultation bilaterally with normal air entry Chest: Nontender Back: Normal range of motion Abdomen: Soft, diffuse tenderness without rebound or guarding, nondistended, normal bowel sounds Extremities: Normal range of motion grossly, equal radial pulses, no cyanosis clubbing or edema Neurologic: Cranial nerves grossly intact, speech is clear Skin: warm and dry Psychiatric: Calm, cooperative, no apparent delusions or hallucinations Core Measures ACS in differential dx? No Sepsis Present: No Sepsis Focused Exam Completed? No Progress Differential Diagnosis: biliary colic, bowel obstruction, diverticulitis, ischemic bowel, inflamm bowel dis, PUD/GERD, perforated viscous Plan of Care: Orders Procedure Date/time Status TSH REFLEX 03/31 0811 Complete TOTAL TRIODOTHYROXINE 03/31 0811 Complete FREE T4 03/31 0811 Complete Add-on Test (ER Only) 03/31 0804 Active URINALYSIS 03/31 0739 Complete LIPASE 03/31 0739 Complete HUMAN BETA HCG SCREEN 03/31 0739 Complete COMPREHENSIVE METABOLIC PANEL 03/31 0739 Complete CBC WITHOUT DIFFERENTIAL 03/31 0739 Complete Current Medications Sig/Lex Start time Last Medication Dose Stop Time Status Admin Ciprofloxacin 500 MG ONCE ONE 03/31 1030 AC (Cipro) 03/31 1031 Metronidazole 500 MG ONCE ONE 03/31 1030 AC (Flagyl) 03/31 1031 Laboratory Tests 03/31/17 0848: Urine Color STRAW, Urine Clarity CLEAR, Urine pH 7.0, Ur Specific [place] 1.015, Urine Protein NEG, Urine Ketones NEG, Urine Nitrite NEG, Urine Bilirubin NEG, Urine Urobilinogen 0.2, Ur Leukocyte Esterase NEG, Ur Microscopic EXAM NOT REQUIRED, Urine Hemoglobin NEG, Urine Glucose NEG 03/31/17 0811: Anion Gap 17 H, Estimated GFR > 60, BUN/Creatinine Ratio 25.0, Glucose 104 H, Calcium 9.9, Total Bilirubin 0.5, AST 25, ALT 39, Alkaline Phosphatase 104, Total Protein 8.2, Albumin 4.9, Globulin 3.3, Albumin/Globulin Ratio 1.5, Lipase 125, Free T4 0.88, Total T3 1.43, TSH &T3 &Free T4 Intrp 11.600 H, Total Beta HCG NEGATIVE, CBC w Diff MAN DIFF ORDERED, RBC 5.33, MCV 92.9, MCH 31.5 H, RDW 12.2, MPV 8.0, Gran % 85.9 H, Lymphocytes % 8.5 L, Monocytes % 3.4, Eosinophils % 2.0, Basophils % 0.2, Absolute Granulocytes 8.5 H, Segmented Neutrophils 78 H, Band Neutrophils 5, Absolute Lymphocytes 0.8 L, Lymphocytes 14 L, Monocytes 2, Absolute Monocytes 0.3, Absolute Eosinophils 0.2, Basophils 1, Absolute Basophils 0, Platelet Estimate ADEQUATE, Normocytic RBCs VERIFIED, Normochromic RBCs VERIFIED, PUBS MCHC 34.0 Diagnostic Imaging: Viewed by Me: CT Scan. Discussed w/RAD: CT Scan. Radiology Impression: PATIENT: ROBERTA BERUMEN PRESENT AGE: 41 PATIENT ACCOUNT NO: [id number] : 74 LOCATION: [facility] [place] ORDERING PHYSICIAN: [place] MD SERVICE DATE: 03/31/17 EXAM TYPE : CAT - CT ABD & PELVIS W/O IV CONTRAS EXAMINATION: CT ABDOMEN AND PELVIS WITHOUT CONTRAST CLINICAL INFORMATION: Diverticulitis. Gastritis. Periumbilical abdominal pain. COMPARISON: CT abdomen pelvis dated 09/05/2016. TECHNIQUE: Multidetector volumetric imaging was performed from the superior aspect of the liver through the pubic symphysis. Sagittal and coronal reformatted images were obtained on the technologist's workstation. DLP: 854.42 mGy-cm FINDINGS: LUNG BASES: The lung bases are clear. There is no pleural effusion. The heart is normal in size. There is no pericardial effusion. LIVER, GALLBLADDER, AND BILIARY TREE: The liver is normal in size, shape, and attenuation. No focal hepatic lesion or biliary ductal dilatation is present. The gallbladder is unremarkable with no evidence of radiopaque gallstones, gallbladder wall thickening, or obvious pericholecystic inflammatory changes. PANCREAS: Unremarkable. SPLEEN: Unremarkable. ADRENAL GLANDS: Unremarkable. KIDNEYS AND URETERS: The kidneys are normal in size, shape, and attenuation. No hydronephrosis or hydroureter. There is a nonobstructive 3 mm left lower pole calculus. No perinephric stranding. BLADDER: Unremarkable. GASTROINTESTINAL TRACT: There is moderate sigmoid colon diverticulosis. The distal sigmoid colon demonstrates mural thickening and there is a moderate amount of pericolonic inflammatory change. There is a small amount of free fluid within the dependent portion of the pelvis on the right side. This constellation of findings is consistent with a mild to moderate diverticulitis. No evidence of bowel obstruction. The appendix is unremarkable. ABDOMINAL WALL: No significant hernia is appreciated. LYMPH NODES: Normal. VASCULAR: No aortic aneurysm. PELVIC VISCERA: Unremarkable. OSSEOUS STRUCTURES: Partial sacralization of the L5 vertebral body. IMPRESSION: There is mild to moderate sigmoid colon diverticulitis. No abscess formation. DICTATED BY: Misha Verde MD DATE/TIME DICTATED:03/31/17917 DISABILITY INSURANCE HEARING OFFICER:JOSEPH DATE/TIME TRANSCRIBED:917 CONFIDENTIAL, DO NOT COPY WITHOUT APPROPRIATE AUTHORIZATION. < Electronically signed in Other Vendor System> SIGNED BY: Misha Verde MD 03/31/17 0937 Initial ED EKG: none Comments: Patient requested IV Zofran because this has worked well for her during past episodes of nausea and vomiting. 03/31/2017 10:27:22 AM patient found sleeping upon my arrival. I have updated Roberta on the CAT scan report and have ordered antibiotics. Departure Departure Disposition: HOME OR SELF CARE Condition: Stable Clinical Impression Primary Impression: Diverticulitis large intestine Qualifiers: Diverticulitis bleeding: without bleeding Diverticulitis complication: without perforation or abscess Qualified Code: K57.32 - Diverticulitis of large intestine without perforation or abscess without bleeding Referrals: Bishnu Delgado MD (PCP/Family) Additional Instructions: Cipro and Flagyl as prescribed. [place] as needed for pain. Follow-up with your primary care physician on Monday for reevaluation. Return if any concerns or sudden worsening. Please note that there might be incidental findings in your evaluation that are unrelated to the current emergency department visit. Please notify your primary care doctor about this emergency department visit in order to obtain and review all of the testing performed so that these incidental findings can be monitored as needed. If you had an x-ray performed, please understand that some fractures may not be seen on the initial set of x-rays. If your symptoms persist you might need a repeat set of x-rays to check for such a fracture. If you had a laceration evaluated, please understand that foreign bodies such as glass or wood may not be visible to the naked eye or on plain x-rays. If the wound becomes red, swollen, increasingly more painful or if there is any drainage from the wound, please have it reevaluated by a physician for the possibility of a retained foreign body. If you're unable to follow up as outlined in the discharge instructions please return to the emergency department. Thank you for choosing the [facility] Emergency Department for your care. It was a pleasure to serve you today. [place] M.D. [facility] Departure Forms: Customer Survey General Discharge Information Prescriptions: Current Visit Scripts Ciprofloxacin HCl (Cipro) 1 TAB PO BID #14 TAB Metronidazole (Flagyl) 1 TAB PO Q6 #28 TAB Hydrocodone/Acetaminophen ([place] 5-325 Tablet) 1 TAB PO Q6 #16 TAB Critical Care Note Critical Care Note Critical Care Time: 30-74 min
[2017-03-31 08:23] LABS: ABSOLUTE BASOPHIL COUNT 0 /CUMM (0.0-0.2); ABSOLUTE EOSINOPHIL COUNT 0.2 /CUMM (0.0-0.7); ABSOLUTE GRANULOCYTE CT 8.5 /CUMM (1.4-6.5); ABSOLUTE LYMPH COUNT 0.8 /CUMM (1.2-3.4); ABSOLUTE MONOCYTE COUNT 0.3 /CUMM (0.10-0.60); BASOPHIL % 0.2 % (0.0-2.0); GRANULOCYTE % 85.9 % (42.2-75.2); HEMATOCRIT 49.5 % (37-47); MEAN CORPUSCULAR HGB 31.5 PG (27.0-31.0); MEAN CORPUSCULAR VOLUME 92.9 FL (81.0-99.0); PLATELET COUNT 164 /CUMM (130-400); RBC DISTRIBUTION WIDTH 12.2 % (11.5-14.5); RED BLOOD CELL CT 5.33 /CUMM (4.20-5.40); WHITE BLOOD CELL COUNT 9.9 /CUMM (4.8-10.8)
[2017-03-31] MEDS ORDERED: LEVOTHYROXINE125 MCG PO (08:47)
--- NOTE | 2017-03-31 09:37 | CT SCAN REPORT ---
EXAMINATION: CT ABDOMEN AND PELVIS WITHOUT CONTRAST CLINICAL INFORMATION: Diverticulitis. Gastritis. Periumbilical abdominal pain. COMPARISON: CT abdomen pelvis dated 09/05/2016. TECHNIQUE: Multidetector volumetric imaging was performed from the superior aspect of the liver through the pubic symphysis. Sagittal and coronal reformatted images were obtained on the technologist's workstation. DLP: 854.42 mGy-cm FINDINGS: LUNG BASES: The lung bases are clear. There is no pleural effusion. The heart is normal in size. There is no pericardial effusion. LIVER, GALLBLADDER, AND BILIARY TREE: The liver is normal in size, shape, and attenuation. No focal hepatic lesion or biliary ductal dilatation is present. The gallbladder is unremarkable with no evidence of radiopaque gallstones, gallbladder wall thickening, or obvious pericholecystic inflammatory changes. PANCREAS: Unremarkable. SPLEEN: Unremarkable. ADRENAL GLANDS: Unremarkable. KIDNEYS AND URETERS: The kidneys are normal in size, shape, and attenuation. No hydronephrosis or hydroureter. There is a nonobstructive 3 mm left lower pole calculus. No perinephric stranding. BLADDER: Unremarkable. GASTROINTESTINAL TRACT: There is moderate sigmoid colon diverticulosis. The distal sigmoid colon demonstrates mural thickening and there is a moderate amount of pericolonic inflammatory change. There is a small amount of free fluid within the dependent portion of the pelvis on the right side. This constellation of findings is consistent with a mild to moderate diverticulitis. No evidence of bowel obstruction. The appendix is unremarkable. ABDOMINAL WALL: No significant hernia is appreciated. LYMPH NODES: Normal. VASCULAR: No aortic aneurysm. PELVIC VISCERA: Unremarkable. OSSEOUS STRUCTURES: Partial sacralization of the L5 vertebral body. IMPRESSION: There is mild to moderate sigmoid colon diverticulitis. No abscess formation.
[2017-03-31] MEDS ORDERED: CIPRO500 M1 PO (10:29)
[2017-03-31] MEDS ORDERED: NORCO 5-325 TA1 EACH PO (10:29)
[2017-03-31] MEDS ORDERED: FLAGYL500 MG PO (10:29)
[2017-03-31 10:41] VITALS: BP 128/70
== END 2017-03-31 10:48 ==
LOC: ERH 06:44
PROVIDERS: Emergency Medicine
DX: K57.32 Diverticulitis of large intestine without perforation or abscess without bleeding (principal); I10 Essential (primary) hypertension; J45.909 Unspecified asthma, uncomplicated; E03.9 Hypothyroidism, unspecified
CPT/HCPCS: 74176; 81003; 96361; 96374; 96375; J1885; J2405; J7040

== ENCOUNTER 2017-12-04 19:26 | Emergency (ER) | payer SELFPAY ==
[~2017-12-04 19:26] MED LIST changes: +CIPRO500 M1 PO; +FLAGYL500 MG PO
--- NOTE | 2017-12-04 23:42 | ED SKIN/ALLERGY COMPLAINT ---
History of Present Illness General Chief Complaint: Skin Rash/ Abcess Stated Complaint: ?ABCESS ON GROIN AREA Source: patient Exam Limitations: no limitations Vital Signs & Intake/Output Vital Signs & Intake/Output Vital Signs Date Time Temp Pulse Resp B/P B/P Pulse O2 O2 Flow FiO2 Mean Ox Delivery Rate 12/05 0056 98.2 88 18 134/78 97 Room Air 12/04 1941 99.0 94 20 149/93 98 Allergies Coded Allergies: Sulfa (Sulfonamide Antibiotics) (THROAT SWELLS/ITCHY 09/05/16) Reconcile Medications Ciprofloxacin HCl (Cipro) 500 MG TABLET 1 TAB PO BID DIVERTICULITIS Ciprofloxacin HCl (Cipro) 500 MG TABLET 1 TAB PO BID DIVERTICULITIS Doxycycline Hyclate 100 MG CAPSULE 1 CAP PO BID abscess Hydrocodone/Acetaminophen ([place] 5-325 Tablet) 5 MG-325 MG TABLET 1 TAB PO Q6 pain Hydrocodone/Acetaminophen ([place] 5-325 Tablet) 5 MG-325 MG TABLET 1-2 TAB PO Q6 pain Levothyroxine Sodium 125 MCG TABLET 1 TAB PO DAILY AC THYROID (Reported) Metronidazole (Flagyl) 500 MG TABLET 1 TAB PO Q6 DIVERTICULITIS Metronidazole (Flagyl) 500 MG TABLET 1 TAB PO Q6 DIVERTICULITIS Ondansetron (Zofran Odt) 4 MG TAB.RAPDIS 1 TAB SL Q6 PRN NAUSEA/VOMITING Triage Note: PER PT LAST MONDAY FEELS LIKE A BUG BITE TO RECTAL AREA NOW AREA IS HARD AND SWELLING CLOSE TO VAGINA NO OUS COMING OUT DOES NOT GET MENSES TEMP 99.0 Triage Nurses Notes Reviewed? yes Onset: Abrupt : No Patient currently breastfeeds: No HPI: 42 yo female with a history of hypothyroidism and hypertension presents for a abscess of the left medial gluteal. She states it has been present since last monday after waking up the morning of and oguth it was a bug bite. Since then it has been growing in size and severity of pain. She admits to feeling weak, chills, achey, fever, loss of appetite, and tender to touch. Denies any abdominal pain, chest pain, headache, visual changes, tinnitus, or changes in bowel movements. Area is a 4 x 2 cm erythematous, warm, tender to touch with a black central spot. (Marco Antonio FORTUNE,Juan) Past History Travel History Traveled to [place] past 21 day No Medical History Any Pertinent Medical History? 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 No (Juan Reid) Review of Systems Review of Systems Constitutional: Reports: see HPI, chills, fever, weakness. EENTM: Reports: no symptoms, see HPI. Respiratory: Reports: no symptoms, see HPI. Cardiovascular: Reports: no symptoms, see HPI. GI: Reports: no symptoms, see HPI. Genitourinary: Reports: no symptoms, see HPI. Musculoskeletal: Reports: no symptoms, see HPI. Skin: Reports: see HPI, cysts, change in skin color, erythema. Neurological/Psychological: Reports: see HPI. Hematologic/Endocrine: Reports: see HPI. Immunologic/Allergic: Reports: see HPI. (Juan Reid) Physical Exam Physical Exam General Appearance: well developed/nourished, no apparent distress, alert, awake , anxious Head: atraumatic, normal appearance Eyes: Bilateral: normal appearance, PERRL, EOMI. Ears, Nose, Throat: normal pharynx, normal ENT inspection Neck: normal inspection, supple, full range of motion Respiratory: normal breath sounds, chest non-tender, no respiratory distress Cardiovascular: regular rate/rhythm Gastrointestinal: normal bowel sounds, soft, non-tender, no organomegaly Rectal: tenderness Back: normal inspection, normal range of motion Extremities: normal inspection, normal capillary refill, normal range of motion, no edema Neurologic/Psych: no motor/sensory deficits, awake, alert Skin Problem Location: Gluteal Skin Problem Character: abcess, swelling, tenderness, warm (Juan Reid) Progress Differential Diagnosis: abscess/cellulitis, contact dermatitis Plan of Care: Orders Procedure Date/time Status EXTREMETIES CULTURE 12/06 107 Active Microbiology 12/05 44 EXTREMITIE: Culture & Sensitivity - RECD 12/05 44 EXTREMITIE: Gram Stain - RECD (Juan Reid) Departure Departure Disposition: HOME OR SELF CARE Condition: Stable Clinical Impression Primary Impression: Skin abscess Referrals: Sandy SAL,Bishnu Su (PCP/Family) Additional Instructions: Return in 2 days for packing removal. Take doxycycline as prescribed. Please go over all results of today's visit with your primary care doctor. Contact your primary care doctor to let them know you were here in the emergency room. There may be nonspecific findings which may not be related to your visit today here in the emergency room but may require further evaluation and chronic monitoring by your primary care doctor. If you had a laceration today the chance of foreign body always remains. You should follow-up with your primary care doctor for recheck in 3-5 days for a wound check. If you had an x-ray done there is a chance that a fracture could have been missed on initial read and you should follow-up with your primary care doctor for repeat x-rays if symptoms persist. If your blood pressure was elevated here in the emergency room please have rechecked by [facility] primary care doctor within the next 48. If you were prescribed a narcotic here in the emergency room or any type of controlled substances you're not allowed to drive while taking this medication or operate any type of heavy machinery. Narcotics can make you feel lightheaded dizziness nausea and can cause constipation. You may need to peanut picker a stool softener. Thank you for choosing [facility] emergency room. Please return to the emergency room immediately if you have any other concerns worsening of symptoms. Departure Forms: Customer Survey General Discharge Information Prescriptions: Current Visit Scripts Doxycycline Hyclate 1 CAP PO BID #20 CAP (Juan eRid) PA/AESTHETICIAN Co-Sign Statement Statement: ED Attending supervision documentation- [] I saw and evaluated the patient. I have also reviewed all the pertinent lab results and diagnostic results. I agree with the findings and the plan of care as documented in the PA's/AESTHETICIAN's documentation. [X] I have reviewed the ED Record and agree with the PA's/AESTHETICIAN's documentation. [] Additions or exceptions (if any) to the PAs/AESTHETICIAN's note and plan are summarized below: [] (Alexis SAL,Bishnu Etienne) Procedures Incision and Drainage Site: Left medial gluteal fold Blade Size: 10 I & D Procedure: Yes: betadine prep, sterile drapes applied, sterile dressing applied. Progress: Applied 2% Lidocaine in a ring block fashion around abscess. Made a 1 cm incision in central spot of the abscess squeezed and took a culture. Proceeded to drain incision until nothing could be drained. Once finished applied a packing strip in the wound and covered in dressing. (Marco Antonio FORTUNE,Juan)
[2017-12-05] MEDS ORDERED: BACTRIM DS TAB1 EACH PO (00:54)
[2017-12-05 00:56] VITALS: BP 134/78
[2017-12-05] MEDS ORDERED: DOXYCYCLINE HY100 M2 PO (13:05)
== END 2017-12-05 01:02 ==
LOC: ERH 19:26
DX: L02.31 Cutaneous abscess of buttock (principal)
CPT/HCPCS: 87070; 87147; J2001